=== PATIENT | female | born 1965 | race Caucasian/White ===

== ENCOUNTER → 2020-01-12 12:59 | Outpatient (BNVA) | payer MEDICARE, MEDICAID, SELFPAY | PROVIDERS: Family Provider Internal Medicine; PCP Internal Medicine; Visit Provider Nurse Practitioner | DX: M54.5 Low back pain (principal); M54.2 Cervicalgia; Z79.891 Long term (current) use of opiate analgesic | CPT/HCPCS: 99213; 99214 ==

== ENCOUNTER → 2020-01-16 12:40 | Outpatient (BNVA) | payer MEDICARE, MEDICAID, SELFPAY | PROVIDERS: Family Provider Internal Medicine; PCP Internal Medicine; Visit Provider Anesthesiology Pain Medicine | DX: G89.29 Other chronic pain (principal); M47.816 Spondylosis without myelopathy or radiculopathy, lumbar region | CPT/HCPCS: 64635; 64636; 77003; J1030; J2001 ==

== ENCOUNTER → 2020-01-17 12:40 | Outpatient (BNVA) | payer MEDICARE, MEDICAID, SELFPAY | PROVIDERS: Family Provider Internal Medicine; PCP Internal Medicine; Visit Provider Nurse Practitioner | DX: F41.1 Generalized anxiety disorder (principal); F43.12 Post-traumatic stress disorder, chronic | CPT/HCPCS: 99213 ==

== ENCOUNTER → 2020-02-08 12:17 | Outpatient (BNVA) | payer MEDICARE, MEDICAID, SELFPAY | PROVIDERS: Family Provider Internal Medicine; PCP Internal Medicine; Visit Provider Anesthesiology Pain Medicine | DX: G89.29 Other chronic pain (principal); M47.816 Spondylosis without myelopathy or radiculopathy, lumbar region; Z79.891 Long term (current) use of opiate analgesic | CPT/HCPCS: 64635; 64636; 77003; J1030; J2001 ==

== ENCOUNTER → 2020-04-11 08:26 | Outpatient (BNVA) | payer MEDICARE, MEDICAID, SELFPAY | PROVIDERS: Family Provider Internal Medicine; PCP Internal Medicine; Visit Provider Nurse Practitioner | DX: F41.1 Generalized anxiety disorder (principal); F43.12 Post-traumatic stress disorder, chronic | CPT/HCPCS: 99213 ==

== ENCOUNTER → 2020-05-08 10:38 | Outpatient (BNVA) | payer MEDICARE, MEDICAID, SELFPAY | PROVIDERS: Family Provider Internal Medicine; PCP Internal Medicine; Visit Provider Anesthesiology | DX: G89.29 Other chronic pain (principal); M51.36 Other intervertebral disc degeneration, lumbar region; M47.816 Spondylosis without myelopathy or radiculopathy, lumbar region; M79.604 Pain in right leg; M79.605 Pain in left leg; M54.2 Cervicalgia; M79.10 Myalgia, unspecified site; Z79.891 Long term (current) use of opiate analgesic | CPT/HCPCS: 99214 ==

== ENCOUNTER → 2020-07-10 09:51 | Outpatient (BNVA) | payer MEDICARE, MEDICAID, SELFPAY | PROVIDERS: Family Provider Internal Medicine; PCP Internal Medicine; Visit Provider Anesthesiology | DX: G89.29 Other chronic pain (principal); M51.36 Other intervertebral disc degeneration, lumbar region; M47.816 Spondylosis without myelopathy or radiculopathy, lumbar region; M54.2 Cervicalgia; Z79.891 Long term (current) use of opiate analgesic | CPT/HCPCS: 99213; 99214 ==

== ENCOUNTER → 2020-07-12 08:19 | Outpatient (BNVA) | payer MEDICARE, MEDICAID, SELFPAY | PROVIDERS: Family Provider Internal Medicine; PCP Internal Medicine; Visit Provider Anesthesiology | DX: G89.29 Other chronic pain (principal); M51.36 Other intervertebral disc degeneration, lumbar region; M47.816 Spondylosis without myelopathy or radiculopathy, lumbar region; Z79.891 Long term (current) use of opiate analgesic | CPT/HCPCS: 62323; J1040; J3490 ==

== ENCOUNTER → 2020-07-27 09:22 | Outpatient (BNVA) | payer MEDICARE, MEDICAID, SELFPAY | PROVIDERS: Family Provider Internal Medicine; PCP Internal Medicine; Visit Provider Nurse Practitioner | DX: F41.1 Generalized anxiety disorder (principal); F43.12 Post-traumatic stress disorder, chronic | CPT/HCPCS: 99213 ==

== ENCOUNTER → 2020-09-07 11:08 | Outpatient (BNVA) | payer MEDICARE, MEDICAID, SELFPAY | PROVIDERS: Family Provider Internal Medicine; PCP Internal Medicine; Visit Provider Anesthesiology | DX: G89.29 Other chronic pain (principal); M51.36 Other intervertebral disc degeneration, lumbar region; M47.816 Spondylosis without myelopathy or radiculopathy, lumbar region; M54.2 Cervicalgia; Z79.891 Long term (current) use of opiate analgesic | CPT/HCPCS: 99213; 99214 ==

== ENCOUNTER → 2020-10-18 08:08 | Outpatient (BNVA) | payer MEDICARE, MEDICAID, SELFPAY | PROVIDERS: Family Provider Internal Medicine; PCP Internal Medicine; Visit Provider Nurse Practitioner | DX: F41.1 Generalized anxiety disorder (principal) | CPT/HCPCS: 99213 ==

== ENCOUNTER → 2020-11-16 10:19 | Outpatient (BNVA) | payer MEDICARE, MEDICAID, SELFPAY | PROVIDERS: Family Provider Internal Medicine; PCP Internal Medicine; Visit Provider Anesthesiology | DX: G89.29 Other chronic pain (principal); M51.36 Other intervertebral disc degeneration, lumbar region; M47.816 Spondylosis without myelopathy or radiculopathy, lumbar region; M54.2 Cervicalgia; Z79.891 Long term (current) use of opiate analgesic | CPT/HCPCS: 99213; 99214 ==

== ENCOUNTER → 2020-12-06 09:19 | Outpatient (BNVA) | payer MEDICARE, MEDICAID, SELFPAY | PROVIDERS: Family Provider Internal Medicine; PCP Internal Medicine; Visit Provider Anesthesiology | DX: G89.29 Other chronic pain (principal); M51.36 Other intervertebral disc degeneration, lumbar region; M47.816 Spondylosis without myelopathy or radiculopathy, lumbar region; Z79.891 Long term (current) use of opiate analgesic | CPT/HCPCS: 62323; J1040; J3490 ==

== ENCOUNTER → 2021-01-07 08:22 | Outpatient (BNVA) | payer MEDICARE, MEDICAID, SELFPAY | PROVIDERS: Family Provider Internal Medicine; PCP Internal Medicine; Visit Provider Nurse Practitioner | DX: F43.12 Post-traumatic stress disorder, chronic (principal); F41.1 Generalized anxiety disorder | CPT/HCPCS: 99214 ==

== ENCOUNTER → 2021-01-08 11:07 | Outpatient (BNVA) | payer MEDICARE, MEDICAID, SELFPAY | PROVIDERS: Family Provider Internal Medicine; PCP Internal Medicine; Visit Provider Nurse Practitioner | DX: G89.29 Other chronic pain (principal); M47.816 Spondylosis without myelopathy or radiculopathy, lumbar region; M51.36 Other intervertebral disc degeneration, lumbar region; M54.2 Cervicalgia; Z79.891 Long term (current) use of opiate analgesic | CPT/HCPCS: 99213 ==

== ENCOUNTER 2021-01-28 10:01 | Outpatient (CLI) | payer MEDICARE, MEDICAID, SELFPAY ==
--- NOTE | 2021-01-28 10:07 | MR_ITS ---
WS: [id number] MRI LUMBAR SPINE NONCONTRAST TECHNIQUE: Sagittal T1, T2 and STIR imaging. Axial T1 and T2 imaging. CLINICAL INFORMATION: INCREASED BACK PAIN COMPARISON: MRI 2011 FINDINGS: Mild lumbar curve. No acute compression. Grade 1 anterolisthesis L3 on L4 and L4 on L5 progressed sin ce 2010. This measures 5 mm L3-4 and 6 mm L4-5. Disc space narrowing L3-4, L4-5, L5-S1 has progressed compared to previous. L1-L2: Normal. L1-L2: Normal L3-L4: Grade 1 anterolisthesis L3 on L4. Severe central canal stenosis with impingement subarticular recess bilaterally. Moderate facet arthropathy with ligamentum flavum hypertrophy. Mild bilateral for aminal narrowing. L4-L5: Grade 1 anterolisthesis. Mild disc bulging with moderate central canal stenosis. Impingement s ubarticular recess bilaterally. Moderate facet arthropathy with a small left facet effusion. Impingem ent on the traversing L5 nerve roots. Mild left greater than right foraminal narrowing. L5-S1: Mild disc bulging with slight effacement of the ventral thecal sac. Slight impingement ayla ing S1 nerve roots right greater than left. Moderate bilateral foraminal narrowing with slight imping ement on the exiting L5 nerve roots bilaterally. Visualized pelvic bony structures: Normal. Paravertebral soft tissues: Normal. MR/MR lumbar spine wo con* [id number] IMPRESSION: 1. Mild lumbar curve. No acute compression. 2. Grade 1 anterolisthesis L3 on L4 and L4 on L5 has progressed since 2010. Pr ogressed disc space narrowing at L3-L4, L4-L5, and L5-S1. 3. Severe central canal stenosis L3-4 progressed since 2010 with impingement o n the subarticular recess. 4. Moderate central canal stenosis L4-5 slightly progressed since 2010. 5. Disc bulging L5-S1 with impingement on the traversing right greater than le ft S1 nerve roots with moderate bilateral foraminal narrowing. Foraminal narrow ing at this level is progressed since 2010.
--- NOTE | 2021-01-28 11:00 | XR_ITS ---
WS: [id number] LUMBAR SPINE FLEXION AND EXTENSION TECHNIQUE: 3 views of the lumbar spine: Lateral neutral, flexion, and extension views. CLINICAL INFORMATION: M47.816 - Spondylosis without myelopathy or radiculopathy, lumbar region COMPARISON: FINDINGS: Disc space narrowing worse at L3-L4, L4-L5 and L5-S1. Grade 1 anterolisthesis L3 on L4 measuring 3.7 mm. Grade 1 anterolisthesis L4 on L5 measuring 8 mm slightly increased since 2019. This increases sli ghtly to 11 mm in flexion and decreases to 7 mm in extension. Moderate facet arthropathy L3-L5. Disc space narrowing L3-L4 L4-L5 has progressed compared to previous. XR/XR lumbar spine f/e only [id number] IMPRESSION: 1. Grade 1 anterolisthesis L4 on L5 slightly increased since 2018 with mild in stability described above. 2. Grade 1 anterolisthesis L3 on L4 without significant instability. 3. Disc space narrowing L3-L5 progressed from previous
== END 2021-01-28 10:02 | disposition home or self-care (01) ==
PROVIDERS: PCP Internal Medicine; Visit Provider Nurse Practitioner
DX: M47.816 Spondylosis without myelopathy or radiculopathy, lumbar region (principal); M51.27 Other intervertebral disc displacement, lumbosacral region; M48.061 Spinal stenosis, lumbar region without neurogenic claudication
CPT/HCPCS: 72120; 72148

== ENCOUNTER 2021-02-10 13:34 | Emergency (ER) | payer MEDICARE, MEDICAID, SELFPAY ==
[2021-02-10 13:45] VITALS: BP 109/75; PULSE 77; RESP 18; TEMP 36.8; O2SAT 97; BMI 19.5
--- NOTE | 2021-02-10 14:03 | ED_ITS ---
HPI - Female Genitourinary General: Chief complaint: Urogenital-Female Stated complaint: AB PAIN, POSS UTI Time Seen by Provider: 02/10/21 13:51 History of Present Illness: HPI Narrative: Patient complains about burning with urination last couple days. Denies any vaginal discharge or bleeding. Is fever chills nausea or vomiting. Said it feels similar to UTIs she has had a past. MD elicited complaint: dysuria and UTI Pertinent past history: recurrent UTIs Onset (ago): day(s) Severity: mild Female Urogenital Radiation: Non-Radiating Severity scale (1-10): 1 Quality of pain: burning Consistency: intermittent Vaginal discharge: none Vaginal bleeding: none Urinary symptoms: Dysuria Exacerbating factors: none Relieving factors: none Associated symptoms: Reports no associated symptoms; Deny abdominal pain, headache(s) or nausea Treatment prior to arrival: none Sexual activity: No Patient : No Review of Systems Const: Denies: fever(s), chills or body aches Eyes: Denies: change in vision or blurry vision ENMT: Denies: throat pain or nasal congestion Card: Denies: chest pain or dyspnea on exertion Resp: Denies: dyspnea, productive cough or non-productive cough GI: Denies: abdominal pain, nausea or vomiting : Reports: dysuria Musc: Denies: extremity pain Skin/Breast: Denies: rash Neuro: Denies: headache(s) Psych: Denies: anxiety or depression Rashawn/Lymph: Denies: easy bruising PFSH ED PFSH: Medical History Alcohol dependence, in remission Chronic low back pain Chronic neck pain DDD (degenerative disc disease), lumbar Encounter for long-term opiate analgesic use Generalized anxiety disorder Long-term current use of opiate analgesic Lumbar spondylosis Myalgia Opioid dependence, in remission Pain management contract signed Post-traumatic stress disorder, chronic Surgical History Hx of breast reduction, elective bilateral Hx of carpal tunnel repair BILATERALLY Hx of section Hx of partial cystectomy Hx of tubal ligation Family History Grandfather Cancer BRAIN CANCER Mother Lung disease COPD Denies family history of Anesthesia complication Bleeding disorder Social History Smoking and tobacco status: never smoked Second hand smoke exposure: No Alcohol intake: never Lives independently: Yes History of recent travel: No Physical Exam Const: COMMON NORMALS: no acute distress Resp: COMMON NORMALS: normal respiratory effort Psych: COMMON NORMALS: mental status grossly normal Course Vital Signs: Vital signs: Vital Signs Temperature 98.3 F 02/10/21 13:45 Pulse Rate 77 02/10/21 13:45 Respiratory Rate 18 02/10/21 13:45 Blood Pressure 109/75 02/10/21 13:45 Pulse Oximetry 97 02/10/21 13:45 Discharge Plan Discharge Prescriptions: No Action lidocaine 5 % cream 1 applic TOPICAL ONCE PRNRF: 0 bupropion HCl [Wellbutrin XL] 300 mg tablet extended release 24 hr 300 mg PO QAM Qty: 30 RF: 2 hydroxyzine HCl 50 mg tablet 50 mg PO Q6H PRN (Reason: anxiety) Qty: 120 RF: 2 topiramate [Topamax] 200 mg tablet 200 mg PO BID Qty: 60 RF: 2 trazodone 50 mg tablet 100 mg PO .HS PRN (Reason: sleep) Qty: 60 RF: 2 zolpidem [Ambien] 5 mg tablet 5 mg PO .HS Qty: 30 RF: 2 prazosin 1 mg capsule 1 mg PO .HS Qty: 30 RF: 2 sennosides [Senna Lax] 8.6 mg tablet 8.6 mg PO .2 BID RF: 0 oxycodone 15 mg tablet 15 mg PO TID PRN (Reason: pain) 30 Days Qty: 90 RF: 0 oxycodone 15 mg tablet 15 mg PO TID PRN (Reason: pain) 30 Days Qty: 90 RF: 0 Coding Level of Care Code ED [employer]
[2021-02-10 14:46] VITALS: BP 102/62; PULSE 85; RESP 16; O2SAT 97
[2021-02-10 14:53] LABS: Blood Urine 2+ (Negative); Glucose Urine UA Norm (Normal); Ketones Urine Negative (Negative); Nitrate Urine Positive (Negative); Protein Urine 3+ (Negative); Urine Appearance Hazy (CLEAR); Urine Color Orange (Yellow); pH Urine 5 (5-7)
[2021-02-10 14:55] LABS: Add Urine Microscopic? YES; Leukocyte Esterase Urine Trace (Negative)
[2021-02-10] MEDS: cefTRIAXone 1,000 MG in lidocaine 1% 2.1 ML 1 MG IM (14:57)
[2021-02-10 14:58] LABS: RBC Urine 15-25 /hpf (0-2); WBC Urine 55-80 /hpf (0-5)
[2021-02-10 14:59] LABS: Add Urine Culture? Yes; Bacteria Urine 1+ /hpf
[2021-02-10 15:28] VITALS: BP 116/70; RESP 18
== END 2021-02-10 15:28 | disposition home or self-care (01) ==
PROVIDERS: Emergency Provider Nurse Practitioner Family
DX: R10.9 Unspecified abdominal pain (principal)
CPT/HCPCS: 81001; 87086; 96372; 99283; J0696

== ENCOUNTER 2021-02-25 12:30 | Outpatient (CLI) | payer MEDICARE, MEDICAID, SELFPAY ==
--- NOTE | 2021-02-25 12:41 | US_ITS ---
WS: [id number] Complete ABDOMINAL ULTRASOUND HISTORY: ABD PAIN COMPARISON: None available. Liver: 12.0 cm in length. Liver is normal size and echogenicity with no mass or intrahepatic dilatati on. Gallbladder: Normally distended with no gallstones, wall thickening or pericholecystic fluid. Gallbladder wall thickness: 0.2 cm. Pancreas: Normal pancreas. Pancreatic duct is mildly prominent at 2.9 mm. CBD: 0.4 cm. Right kidney: 8.3 cm x 4.3 cm x 4.0 cm. Kidney measures low normal size. There is scarring or cortic al thinning of the upper pole. No hydronephrosis or mass. Left kidney: 9.4 cm x 3.8 cm x 3.7 cm. No mass, cortical thickening or hydronephrosis. Spleen: Normal size and echogenicity. Abdominal aorta and IVC are within normal limits. No ascites. US/US abdomen complete* [id number] IMPRESSION: 1. Normal liver and gallbladder. 2. Very mildly prominent pancreatic duct. New since 08/26/2016. No mass at the pancreatic head is identified. Consider further evaluation by CT with IV and or al contrast. 3. RIGHT kidney is low normal size with cortical thinning and scarring in the upper pole.
--- NOTE | 2021-02-25 12:41 | US_ITS ---
WS: [id number] TRANSABDOMINAL PELVIC AND TRANSVAGINAL PELVIC ULTRASOUND HISTORY: ABD PAIN COMPARISON: None available. Uterus: 5.5 cm x 3.6 cm x 2.7 cm. Small anteverted uterus. No fibroid or mass. Endometrium: 0.4 cm. Normal endometrium. No mass identified. There is a small amount of fluid in endo metrial cavity. Right ovary: 1.7 cm x 1.0 cm x 1.6 cm. Atrophic ovary. Normal vascularity. No solid or cystic mass. Left ovary: 1.9 cm x 1.5 cm x 0.7 cm. Atrophic ovary. Normal vascularity. No solid or cystic mass. No free fluid. US/US pelvic with transvaginal IMPRESSION: 1. No pelvic masses. 2. Normal uterus and ovaries for postmenopausal patient.
== END 2021-02-25 12:31 | disposition home or self-care (01) ==
LOC: RAD 12:37
PROVIDERS: PCP Nurse Practitioner Family; Visit Provider Nurse Practitioner Family
DX: R10.84 Generalized abdominal pain (principal)
CPT/HCPCS: 76700; 76830; 76856

== ENCOUNTER → 2021-03-07 09:23 | Outpatient (BNVA) | payer MEDICARE, MEDICAID, SELFPAY | PROVIDERS: PCP Nurse Practitioner Family; Visit Provider Anesthesiology | DX: G89.29 Other chronic pain (principal); M51.36 Other intervertebral disc degeneration, lumbar region; M47.816 Spondylosis without myelopathy or radiculopathy, lumbar region; M48.061 Spinal stenosis, lumbar region without neurogenic claudication; Z79.891 Long term (current) use of opiate analgesic | CPT/HCPCS: 99213 ==

== ENCOUNTER 2021-03-18 09:39 | Outpatient (CLI) | payer MEDICARE, MEDICAID, SELFPAY ==
--- NOTE | 2021-03-18 09:53 | CT_ITS ---
WS: [id number] CT ABDOMEN WITH CONTRAST HISTORY: ABNORMALITY OF PANCREAS Contiguous single phase 5 mm axial imaging performed to the abdomen. Oral contrast has been provided. Coronal and sagittal reformats are submitted. All CT scans at [facility] use at least on e of these dose optimization techniques: automated exposure control; mA and/or kV adjustment per albert ent size (includes targeted exams where dose is matched to clinical indication); or iterative reconst ruction. CONTRAST: Omnipaque 300; 95 mL IV. DLP: 455.2 mGycm COMPARISON: 01/19/2017. Ultrasound 02/25/2021 Lower thorax: Unremarkable. Liver: Normal. No intrahepatic dilatation. Gallbladder: Normal. Pancreas: Normal size pancreas. Pancreatic duct is identified measuring up to 2.5 mm. Common bile di t at pancreatic head is normal measuring 6.1 mm. There is no obstructing calcification or mass identi fied. Spleen: Normal. Adrenals: Normal. Right kidney: Numerous nonobstructing calcifications in the kidney. There is cortical thinning and sc arring but no obstruction. Left kidney: Numerous small calcifications measuring up to 8 mm in the renal pelvis. No obstruction. Cortical scarring and thinning. Aorta: Mild atherosclerosis and intimal thickening. GI tract: Marked fecal retention in the visualized colon. Increased soft tissue thickening in the cec um is probably retained fecal material is no constipation. No adenopathy or free fluid. Abdominal wall: No hernia. Visualized osseous structures: L3 and L4 anterolisthesis by 6 mm. Marked facet joint arthritis at L4- 5 and L5-S1. CT/CT abdomen w con* [id number] IMPRESSION: 1. Pancreatic duct is minimally prominent. Still within normal limits. 2. Common bile duct is top normal at 6.1 mm. No pancreatic head mass or duct c alcification. 3. Bilateral nephrolithiasis, nonobstructing with multifocal areas of cortical scarring. Probably from prior ischemic events or infections. 4. Marked constipation the visualized colon.
[2021-03-18] MEDS: iohexol 300 mg/mL 50 mL Btl PO (10:32)
[2021-03-18] MEDS: iohexol 300 mg/mL 100 mL Btl IV (11:20)
== END 2021-03-18 09:40 | disposition home or self-care (01) ==
LOC: RADWPI 09:47
PROVIDERS: PCP Nurse Practitioner Family; Visit Provider Nurse Practitioner Family
DX: Q45.3 Other congenital malformations of pancreas and pancreatic duct (principal); K59.00 Constipation, unspecified; N20.0 Calculus of kidney
CPT/HCPCS: 74160; Q9967

== ENCOUNTER → 2021-04-08 08:11 | Outpatient (BNVA) | payer MEDICARE, MEDICAID, SELFPAY | PROVIDERS: PCP Nurse Practitioner Family; Visit Provider Nurse Practitioner | DX: F43.12 Post-traumatic stress disorder, chronic (principal); F41.1 Generalized anxiety disorder | CPT/HCPCS: 99214 ==

== ENCOUNTER → 2021-05-15 10:28 | Outpatient (BNVA) | payer MEDICARE, MEDICAID, SELFPAY | PROVIDERS: PCP Nurse Practitioner Family; Visit Provider Nurse Practitioner | DX: G89.29 Other chronic pain (principal); M43.16 Spondylolisthesis, lumbar region; M48.061 Spinal stenosis, lumbar region without neurogenic claudication; M47.816 Spondylosis without myelopathy or radiculopathy, lumbar region; M51.36 Other intervertebral disc degeneration, lumbar region; M54.2 Cervicalgia; F10.21 Alcohol dependence, in remission; Z79.891 Long term (current) use of opiate analgesic | CPT/HCPCS: 99214 ==

== ENCOUNTER → 2021-05-28 10:32 | Outpatient (BNVA) | payer MEDICARE, MEDICAID, SELFPAY | PROVIDERS: PCP Nurse Practitioner Family; Visit Provider Orthopaedic Surgery | DX: Z01.812 Encounter for preprocedural laboratory examination (principal); Z20.822 Contact with and (suspected) exposure to COVID-19 | CPT/HCPCS: 87635 ==

== ENCOUNTER 2021-05-31 10:58 | Observation (INO) | payer MEDICARE, MEDICAID, SELFPAY ==
[2021-05-27 12:52] VITALS: BMI 19.5
--- NOTE | 2021-05-27 14:51 | ANES.PREANE2 ---
Pre-Anesthetic Assessment Pre-Anesthetic Assessment: Height/Weight: Height 1.6 m Weight 49.895 kg Proposed Procedure: Operation Date: 05/31/21 07:00 Proposed Procedures p PLIF L4/5 4/5 80066, 70079, 57023, 87630, 39043, 06897 M43.16(Not Applicable) - Diego Duarte Natali, DO Was Beta Mark taken within 24 hours: N/A Was Clonidine taken within 24 hours: N/A Social: Social History: Alcohol (h/o ETOH abuse) and Tobacco (h/o smoking) Exam: Pre-Anes Outpt Exam: alert, oriented x 3 and regular rate & rhythm Airway: Submandibular: WNL Cervical ROM: WNL MP: 2 Dentition: False Pulmonary: Pulmonary: COPD Musc/skel: Musc/skel: Lower Back Pain Comments: Chronci pain/opioid Neuropsych: Neuropsych: Anxiety and Depression Anesthetic Plan: ASA status: 3 Anesthesia: General Risk of > 500 ml blood loss (7ml/kg in children): No PFSH Anesthesia PFSH: Medical History (Updated 05/15/21 @ 11:58 by GURWINDER Mena) Alcohol dependence, in remission Chronic low back pain Chronic neck pain DDD (degenerative disc disease), lumbar Encounter for long-term opiate analgesic use Generalized anxiety disorder Lumbar spondylosis Myalgia Opioid dependence, in remission Pain management contract signed Post-traumatic stress disorder, chronic Surgical History Hx of breast reduction, elective bilateral Hx of carpal tunnel repair BILATERALLY Hx of section Hx of partial cystectomy Hx of tubal ligation Family History Grandfather Cancer BRAIN CANCER Mother Lung disease COPD Denies family history of Anesthesia complication Bleeding disorder Social History Smoking and tobacco status: never smoked Second hand smoke exposure: No Alcohol intake: never Desire information about alcohol rehabilitation?: No Desire information about substance/drug rehabilitation?: No Lives independently: Yes History of recent travel: No Data Anesthesia Cardiac Studies: No Data to Display
[2021-05-31] VITALS (20 sets, daily range): BP systolic 82–122; BP diastolic 47–76; PULSE 58–79; RESP 14–27; TEMP 36.2–37.3; O2SAT 97–100
[2021-05-31] MEDS: sodium chloride 0.9% 1,000 ML 30 ML IV (06:30)
--- NOTE | 2021-05-31 06:38 | P.ANESUD_ITS ---
Pre-Anesthetic Update Pre-Anesthetic Assessment: Date of Surgery/Procedure: 05/31/21 Proposed Procedure: Operation Date: 05/31/21 07:00 Proposed Procedures p PLIF L3/4 - L4/5 48726, 35390, 85564, 02785, 79813, 76355 M43.16(Not Camille licable) - Diego Hurst, DO Any changes to Pre-Anesthetic Assessment?: No Last Intake: Intake Last Liquid Date 05/30/21 Last Liquid Time 22:00 Last Solid Date 05/30/21 Last Solid Time 22:00 Vitals: Temperature 97.9 F 05/31/21 06:10 Temperature Source Temporal Artery S can 05/31/21 06:10 Pulse Rate 65 05/31/21 06:10 Pulse Rhythm 05/31/21 06:24 Pulse Strength 3+ Normal 05/31/21 06:24 Respiratory Rate 16 05/31/21 06:10 Blood Pressure 102/62 05/31/21 06:10 Blood Pressure Gayla n 75 05/31/21 06:10 Pulse Oximetry 100 05/31/21 06:10 Oxygen Delivery Me thod 05/31/21 06:24 Exam: Pre-Anes Outpt Exam: alert, oriented x 3, clear to auscultation bilaterally and regular rate & rhythm Cardiac Studies: No Data to Display
--- NOTE | 2021-05-31 06:41 | W.PM.OPSUD ---
Surgery/Procedure H&P Update DATE OF PROCEDURE: May 31, 2021 DATE H&P PERFORMED: 05/14/21 H&P UPDATE INFORMATION: I have reviewed H&P completed within last 30 days, I have examined patient prior to procedure and No changes to prior documentation PLANNED PROCEDURE: Operation Date: 05/31/21 07:00 Proposed Procedures p PLIF L3/4 - L4/5 15227, 22487, 71003, 27826, 79005, 55127 M43.16(Not Applicable) - Diego Hurst DO
[2021-05-31] MEDS: heparin, porcine 1,000 unit/mL INJ 10 mL 10000 UNIT IRRIGATION (07:56)
[2021-05-31] MEDS: vancomycin 1,000 MG SDV 1000 MG XX (09:46)
[2021-05-31] MEDS: ceFAZolin 1,000 mg SDV 2000 MG IVP (10:51)
[2021-05-31] MEDS: HYDROmorphone 1 mg/mL INJ 1 mL 0.5 MG IVP ×2 (11:21→11:31)
--- NOTE | 2021-05-31 11:28 | P.OP_ITS ---
Operative Report Date of procedure: May 31, 2021 Pre-op Diagnosis: Lumbar spondylolisthesis; stenosis Post-op diagnosis: same Procedure Done: 1. L3/4 Interbody fusion with posterolateral fusion 2. L4/5 Interbody fusion with posterolateral fusion 3. Instrumentation L3-5 4. Cage at L3/4 5. Cage at L4/5 6. Laminectomy L3 7. Laminectomy L4 8. use of autograft from same incision 9. allograft 10. Bone marrow aspirate from right iliac crest 11. Use of computer navigation stereotactic for spine Surgeon: Diego Hurst Anesthesia: General Estimated blood loss (mL): 300 Condition: stable Disposition: PACU Procedure: 1. L3/4 Interbody fusion with posterolateral fusion 2. L4/5 Interbody fusion with posterolateral fusion 3. Instrumentation L3-5 4. Cage at L3/4 5. Cage at L4/5 6. Laminectomy L3 7. Laminectomy L4 8. use of autograft from same incision 9. allograft 10. Bone marrow aspirate from right iliac crest 11. Use of computer navigation stereotactic for spine 12. Reduction of spondyloisthesis at L4/5 Patient is brought to the operative suite. After undergoing anesthesia, the patient had neuro monitoring attached. Patient was then placed in the prone position on the Alex table. All areas of impingement were well-padded. Patient was then prepped and draped in the normal sterile fashion. Skin incision was then made over the L3-L5 space. Subperiosteal dissection was made out to the transverse processes of L3 and L4 and L5. Once the exposure was complete attention was then brought to placing the fadicial for computer navigation. The pins were placed into the right iliac crest. The fiducial was then attached to the pins. The fiducial was on Link to the computer. The C arm was then did this pin around the patient. Once this pin was done the information was loaded into the computer in order to facilitate using the computer navigation. Prior to placing the pedicle screws the [employer] bone marrow aspirate kit was used to aspirate bone marrow aspirate from the right iliac crest. this was done by using the sharp probe to open up the bone. Aspiration was performed and then the blunt probe was then used to dissect down to through the bone tunnel. An aspirating well drawn back a millimeter approximately 20 cc of bone marrow aspirate was used. Admixed with the allograft and autograft bone that will be used. The technique for placing the pedicle screws was to use a drill followed by the gearshift probe which was attached to the computer navigation. Followed by the ball probe to feel the superior inferior medial lateral bridges of the pedicles. Then placement of the screws which were attached to the computer navigation. Was done at each pedicle. Screws were placed at L3 bilaterally and L4 bilaterally and L5 bilaterally. Next attention was brought to performing the laminectomy ofL3. This was done using the high-speed bur Kerrisons and curettes. Once the lamina was removed and then attention was brought to performing a partial facetectomy on the contralateral side. This was done again using the high-speed bur curettes and Kerrisons. The ligamentum flavum was taken down bilaterally from L3 to L4. Attention was then brought to the facet on the ipsilateral side. The facet was taken down. The L4 nerve was decompressed as it passed around the L4 pedicle. The laminectomy was done for purposes of decompressing the nerve as well as placement of the cage. The L3 nerve was identified as it traversed through the L3/4 foramen. The thecal sac was identified and retracted. The L3/4 disc base was identified. Using a knife the disc base was opened. And then sequential samantha were placed. The first shaver was a 6 and the last shaver was a 8. Using a pituitary and down going curette the endplates were scraped and disc material was removed from the space. Once adequate decompression of the disc base was felt to be had. Osteoamp sponge was packed into the anterior aspect of the disc base. Then a size 8 cage from [employer] was placed after packing osteoamp into the cage. While placing the cage the thecal sac and L4 nerve was protected. C arm was used to ensure that the cages placed in the appropriate position. Next attention was brought to performing the laminectomy ofL4. This was done using the high-speed bur Kerrisons and curettes. Once the lamina was removed and then attention was brought to performing a partial facetectomy on the contralateral side. This was done again using the high-speed bur curettes and Kerrisons. The ligamentum flavum was taken down bilaterally from L4 to L5. Attention was then brought to the facet on the ipsilateral side. The facet was taken down. The L5 nerve was decompressed as it passed around the L5 pedicle. The laminectomy was done for purposes of decompressing the nerve as well as placement of the cage. The L4 nerve was identified as it traversed through the L4/5 foramen. The thecal sac was identified and retracted. The L4/5 disc base was identified. Using a knife the disc base was opened. And then sequential samantha were placed. The first shaver was a 6 and the last shaver was a 11. Using a pituitary and down going curette the endplates were scraped and disc material was removed from the space. The curt was attached to the contralateral screws. And a reduction tool was attached to the L4 screw. The curt was locked into L5 the L4-5 disc base was distracted with the reduction tool once the distraction was completed then the reduction tool is used to reduce the spondylolisthesis. Once this was reduced then the screw was locked into position. Attention was then brought back to perform discectomy. The size of the initial measurement of the space was 8 now is up to 11. Once adequate decompression of the disc base was felt to be had. Osteoamp sponge was packed into the anterior aspect of the disc base. Then a size 11 cage from [employer] was placed after packing osteoamp into the cage. While placing the cage the thecal sac and L5 nerve was protected. C arm was used to ensure that the cages placed in the appropriate position. Attention was then brought to attaching the rods to the screws placed in the L3 bilaterally 4 bilaterally and L5 bilaterally. Caps were torqued into position. Locking the construct in place. Wound was copiously irrigated and then attention was brought to decorticating the facets and transverse processes laterally. Bone that was taken down from the lamina was used along with osteoamp fibers and sponges were packed into the lateral gutters along the facet joints. This was done bilaterally. Wound was then closed in a layered fashion starting with the thoracolumbar fascia. 0-stratafix was used the sub cutaneous tissue was closed with 2-0 stratafix and skin with 3-0 nylon. Nylon was then used to seal the skin and a steril Silverlon dressing was applied. Patient was then placed in the supine position. The endotracheal tube was removed and patient was transferred to the PACU in stable condition. Associated Problem List Diagnoses (1) Lumbar spondylosis:
--- NOTE | 2021-05-31 11:59 | SUR.PHASEI ---
1155 PT HAS SENSATION/MOVEMENT ALL EXTREMITIES, PEDAL PULSES PALPATED, CAP REFILL <3 SEC
[2021-05-31] MEDS: HYDROcodone-acetaminophen 5-325 mg Tablet PO (12:48)
[2021-05-31] MEDS: sennosides 8.6 mg Tablet 17.2 MG PO ×2 (12:48→20:34)
[2021-05-31] MEDS: morphine 4 mg/mL SDV 1 mL 2 MG IVP ×3 (14:46→23:35)
--- NOTE | 2021-05-31 15:29 | ANE.PACU2 ---
Inpatient post-anesthesia follow up: Airway intact: Yes Vital signs: Temperature 97.8 F Pulse Rate 79 Respiratory Rate 18 Blood Pressure 111/59 Pulse Oximetry 97 Oxygen Delivery Me thod Room Air Oxygen Flow Rate 8 Fraction of Inspir ed Oxygen Hydration adequate: Yes Nausea and vomiting: No Pain level: 3 Mental status: Baseline
[2021-05-31] MEDS: docusate sodium 100 mg Capsule PO (18:30)
[2021-05-31] MEDS: topiramate 100 mg Tablet 200 MG PO (18:30)
[2021-05-31] MEDS: acetaminophen 325 mg Tablet 650 MG PO (22:52)
[2021-06-01] VITALS: BP 105/60; PULSE 65; RESP 17; TEMP 38.6; O2SAT 100
[2021-06-01 00:09] VITALS: TEMP 37.3
[2021-06-01] MEDS: HYDROcodone-acetaminophen 5-325 mg Tablet PO (01:37)
[2021-06-01 03:36] VITALS: RESP 18
[2021-06-01] MEDS: morphine 4 mg/mL SDV 1 mL 2 MG IVP ×2 (03:36→08:42)
[2021-06-01 04:35] VITALS: BP 102/61; PULSE 74; RESP 16; TEMP 38.1; O2SAT 97
[2021-06-01] MEDS: buPROPion XL (24 HR) 300 mg Tablet PO (06:20)
[2021-06-01] MEDS: enoxaparin 40 mg/0.4 mL Syringe SUBCUT (06:20)
[2021-06-01] MEDS: acetaminophen 325 mg Tablet 650 MG PO (06:35)
[2021-06-01 07:50] VITALS: BP 102/65; PULSE 70; RESP 18; TEMP 37.1; O2SAT 98
[2021-06-01] MEDS: sennosides 8.6 mg Tablet 17.2 MG PO (08:50)
[2021-06-01] MEDS: docusate sodium 100 mg Capsule PO (08:50)
[2021-06-01] MEDS: cyanocobalamin 1,000 mcg Tablet 1000 MCG PO (08:50)
[2021-06-01] MEDS: topiramate 100 mg Tablet 200 MG PO (08:50)
--- NOTE | 2021-06-01 10:30 | PM.DCS ---
Discharge Providers Date of Admission: 05/31/21 10:58 Date of Discharge: June 01, 2021 Attending Provider at Admission: Diego Hurst DO Attending Provider at Discharge: Diego Hurst DO Primary Care Provider: Cherry Saldivar NP Diagnoses at Discharge Discharge Diagnosis (1) Lumbar spondylosis: Status: Chronic Reason for Visit Reason for Visit: PLIF L4/5 4/5 Hospital Course Hospital Course Patient was admitted on 05/31/2021 she had a two-level posterior lumbar interbody fusion done. Her course was uncomplicated she was discharged on 06/01/2021. Physical Exam Narrative: EXAM NARRATIVE: Patient is in pain but is controlled. She is sitting in the bed. She was up with therapy. Urinary Catheter Management^: Shea: Cath Placed During This Visit: yes, but has since been removed by the nurse Reason for Continuing Indwelling Catheter: Decision to DC Catheter Urinary Catheter Date of Insertion: 05/31/21 Urinary Catheter Time of Insertion: 07:10 Date Urinary Catheter Removed: 05/31/21 Time Urinary Catheter Discontinued: 15:00 Discharge Data Vitals: Last Vital Signs Temp 98.8 F 06/01/21 07:50 Pulse 70 06/01/21 07:50 Resp 18 06/01/21 07:50 BP 102/65 06/01/21 07:50 Pulse Ox 98 06/01/21 07:50 Discharge Plan Discharge Patient Disposition: Home Condition: Stable Prescriptions: New oxycodone 30 mg tablet 30 mg PO TID PRN (Reason: pain) 10 Days Qty: 30 RF: 0 Continued lidocaine 5 % cream 1 applic TOPICAL ONCE PRN (Reason: Pain) RF: 0 zolpidem [Ambien] 5 mg tablet 5 mg PO .HS Qty: 30 RF: 2 trazodone 50 mg tablet 100 mg PO .HS PRN (Reason: sleep) Qty: 60 RF: 2 topiramate [Topamax] 200 mg tablet 200 mg PO BID Qty: 60 RF: 2 hydroxyzine HCl 50 mg tablet 50 mg PO Q6H PRN (Reason: anxiety) Qty: 120 RF: 2 bupropion HCl [Wellbutrin XL] 300 mg tablet extended release 24 hr 300 mg PO QAM Qty: 30 RF: 2 sennosides [Senna Lax] 8.6 mg tablet 8.6 mg PO .2 BID RF: 0 oxycodone 15 mg tablet 15 mg PO TID PRN (Reason: pain) 30 Days Qty: 90 RF: 0 mupirocin 2 % ointment 1 applic topical BID Qty: 15 RF: 0 cephalexin 500 mg capsule 500 mg PO TID 7 Days Qty: 21 RF: 0 cyanocobalamin (vitamin B-12) Tablet,Chewable 1 tab PO DAILY RF: 0 Discharge Orders: Discharge Order (Routine); Ordered 06/01/21 Ordered By: Diego Hurst Other Ambulatory Orders: DME: Walker (Order) Location: None Selected Ordered By: Diego Hurst Referrals: Home and Community Services [Other] Discharge Diet: Advance as tolerated Discharge Activity: Limit activity as instructed Patient Instructions: Opioid Safety Activity Restrictions/Additional Instructions: Thank you for [facility] for your care! The following is a list of instructions, from your provider, to follow upon your discharge to ensure you have the optimal recovery from your recent injury orsurgery. Follow-up care is a schafer part of your treatment and safety. Be sure to make and go to all appointments, and call your doctor if you are having problems. If you do not already have a follow-up appointment made, call Dr. Hurst office in the next 1-3 days to make follow up appointment for 1 weeks at [phone]. It is also a good idea to know your test results and keep a list of the medicines you take. Medications will be prescribed for you at your provider's discretion. These medications are to be used as instructed; if they are taken more often that prescribed they will not be refilled early and in most cases will not be refilled at all. > When a refill is needed,you should contact benji bennett 2-3 business days before your prescription runs out. Medications will NOT be refilled by auto parts salesperson providers after hours! > Many pain medications contain Tylenol (Acetaminophen). Do not consume more than 4,000 mg of Tylenol per day in total with any combination ofmedications. > Pain medications can cause constipation. Please use an over the counter stool softener as directed, while taking pain medications. Consulty our local pharmacist with questions or recommendations on stool softeners. If constipation persists, contact our office or your primary care provider. > While under our care,you are not to receive pain medications or other controlled substances from any other provider unless our office is notified and approves. Any attempts to do so will result in refusal to prescribe any further pain medications and possible dismissal from our practice. ? ? Showering is permitted, however we ask that you do not take a bath, sit in a whirlpool / Jacuzzi, or go swimming for 1 month. lt wilt be necessary for you to cover your wound/dressing with plastic and tape to keep it dry. ? Walking is essential for the healing process after surgery. We would like you to slowly advance your walking. This should be done on relatively flat clear ground (inside or out) or can be done on a treadmill. Remember this goal does not have to happen all at once, slowly increase your distance and duration. This can be broken into more more than one walk per day as tolerated. Patients who walk as directed after surgery rarely require Physical Therapy. In the unlikely event this issue arises your provider will direct hospital staff to make the appropriate arrangements. ? No lifting over 5 pounds {a gallon of milk) or bending/twisting until further notice. Each of these activities places an unnecessary amount of stress onto the body and can impede the delicate healing process. > Instead of bending at the waist, keep your back straight and bend at the knees. > Instead of twisting your torso, keep your back straight and turn your entire body with your feet. ? You may sleep in any position which makes you comfortable. Many patients find comfort sleeping in a reclining chair. It is not abnormal to have difficulty sleeping for the first several weeks following your surgery. We recommend trying Benadry! or Tylenol PM as directed to help with your sleeping difficulties. Both medications are over the counter and available withoutprescription. ? NO SMOKING!!! Smoking dramatically increases the probability of developing postoperative wound infections. ? Common complaints after lumbar and/or thoracic spine surgery include, but are not limited to: numbness and/or tingling in the legs, pain around the incision and surrounding tissues, muscle spasms, or stiffness of the middle to low back. Contact our office if these symptoms persist or if an acute change occurs. ? No driving for the first 3-5days, and not while taking narcotics [] until seen at your follow-up appointment and cleared. There are no restrictions for riding on short trips, however if you take a longer trip, arrangements should be made to make regular stops to get out of the vehicle and stretch . ? Swelling is an unfortunate event that will take place with any surgery and is the primary source of your postoperative discomfort. While walking and regular approved activities helps control inflammation, there are additional steps you can take to minimizeswelling. > Place ice over the surgical site and surrounding tissue for twenty minutes, followed by applying a low/medium heat (heating pad) for an additional twenty minutes every 1-2 hours as needed for painrelief. > You may use of over the counter anti-inflammatory medications (Ibuprofen, Motrin, Aleve, Advil, etc) as directed on the package label. These types of medicines wm significantly reduce the amount of discomfort you experience after surgery from swelling. It should be noted that if you have and allergy to any of these medications, or a history of ulcers or kidney disease you should consult you primary care provider prior to starting these medications. Discharge Attestations Time Spent in Discharge Care*: less than 30 min Quality Metrics Clinical Quality Measures During this hospital stay, did patient experience: None Coding Level of Care Code Acute [facility] DC note Diagnoses Lumbar spondylosis M47.816
--- NOTE | 2021-06-01 12:11 | PC.NURSE ---
Using clean technique, hemovac removed without complication. Absorbant dressing applied. Patient tolerated well.
== END 2021-06-01 12:12 | disposition home or self-care (01) ==
LOC: MEDSURG 10:59
PROVIDERS: Admitting Provider Orthopaedic Surgery; PCP Nurse Practitioner Family; Visit Provider Orthopaedic Surgery
PROC: (CPT 22612; principal; 2021-05-31 07:00)
DX: M43.16 Spondylolisthesis, lumbar region (principal); J44.9 Chronic obstructive pulmonary disease, unspecified; F41.9 Anxiety disorder, unspecified; F32.9 Major depressive disorder, single episode, unspecified; M79.10 Myalgia, unspecified site
CPT/HCPCS: 20930; 20936; 22633; 22634 ×2; 22842; 22853; 61783; 63047; 63048; 51702; 96372; 97161; 97530; C1713; G0378; J0690; J1100; J1170; J1644; J1650; J2270; J2405; J2704; J3010; J3370; J3490; J7030

== ENCOUNTER → 2021-07-08 08:46 | Outpatient (BNVA) | payer MEDICARE, MEDICAID, SELFPAY | PROVIDERS: PCP Nurse Practitioner Family; Visit Provider Nurse Practitioner | DX: F43.12 Post-traumatic stress disorder, chronic (principal); F41.1 Generalized anxiety disorder | CPT/HCPCS: 99214 ==

== ENCOUNTER 2021-07-12 10:43 | Outpatient (CLI) | payer MEDICARE, MEDICAID, SELFPAY ==
[2021-07-12 11:35] LABS: Basophils % 1.1 %; Eosinophils # 0.1 10^3/uL (0.0-0.8); Eosinophils % 3.5 %; Hematocrit 34.4 % (37.0-47.0); Lymphocytes # 1.3 10^3/uL (0.8-4.8); Lymphocytes % 34.9 %; Mean Corpuscular Hemoglobin 32.1 pg (28.0-34.0); Mean Corpuscular Volume 100.3 fl (81-99); Mean Platelet Volume 10.3 fL (7.4-10.4); Monocytes # 0.3 10^3/uL (0.2-0.9); Monocytes % 6.7 %; Neutrophils # 1.99 10^3/uL (1.8-7.7); Neutrophils % 53.5 %; Nucleated Red Blood Cells % 0 %; Platelet Count 163 10^3/cmm (130-400); Red Blood Count 3.43 10^6/uL (4.1-5.3); White Blood Count 3.7 10^3/uL (4.0-10.0)
[2021-07-12 11:56] LABS: Anion Gap 12.6 (5-19); Blood Urea Nitrogen 19 mg/dL (6-20); Calcium 8.8 mg/dL (8.5-10.5); Carbon Dioxide 22 mmol/L (22-29); Chloride 109 mmol/L (98-107); Glomerular Filtration Rate 46.8 mL/min (90-130); Glucose 90 mg/dL (65-115); Phosphorus 4.1 mg/dL (2.5-4.5); Potassium 4.6 mmol/L (3.5-5.1); Sodium 139 mmol/L (136-145)
[2021-07-12 11:56] LABS: Creatinine Urine, Random 141 mg/dL (28-217)
[2021-07-12 11:58] LABS: Calcium 8.7 mg/dL (8.5-10.5)
[2021-07-12 12:06] LABS: Parathyroid Hormone 22.3 pg/mL (15-65)
[2021-07-12 12:12] LABS: Microalbum Creatinine Ratio Ur 7 mg/dL (0-20); Microalbumin Random Urine 1 ug/dL (0-20)
== END 2021-07-12 10:44 | disposition home or self-care (01) ==
LOC: LAB 10:52
PROVIDERS: PCP Nurse Practitioner Family; Visit Provider Internal Medicine Nephrology
DX: N18.30 Chronic kidney disease, stage 3 unspecified (principal)
CPT/HCPCS: 36415; 80069; 82044; 82310; 83970; 85025

== ENCOUNTER → 2021-07-17 09:52 | Outpatient (BNVA) | payer MEDICARE, MEDICAID, SELFPAY | PROVIDERS: PCP Nurse Practitioner Family; Visit Provider Nurse Practitioner | DX: G89.29 Other chronic pain (principal); M51.36 Other intervertebral disc degeneration, lumbar region; M48.061 Spinal stenosis, lumbar region without neurogenic claudication; M43.16 Spondylolisthesis, lumbar region; M54.2 Cervicalgia; M79.10 Myalgia, unspecified site; F41.1 Generalized anxiety disorder; Z79.891 Long term (current) use of opiate analgesic; Z87.891 Personal history of nicotine dependence | CPT/HCPCS: 99213; 99214 ==

== ENCOUNTER → 2021-07-19 12:59 | Outpatient (BNVA) | payer MEDICARE, MEDICAID, SELFPAY | PROVIDERS: PCP Nurse Practitioner Family; Visit Provider Orthopaedic Surgery | DX: M43.16 Spondylolisthesis, lumbar region (principal) | CPT/HCPCS: 72100 ==

== ENCOUNTER → 2021-09-03 10:57 | Outpatient (BNVA) | payer MEDICARE, MEDICAID, SELFPAY | PROVIDERS: PCP Nurse Practitioner Family; Visit Provider Physician Assistant | DX: M43.16 Spondylolisthesis, lumbar region (principal) | CPT/HCPCS: 72100 ==

== ENCOUNTER 2021-09-11 06:00 | Outpatient (RCR) | payer MEDICARE, MEDICAID, SELFPAY | END 2021-09-29 23:59 | disposition home or self-care (01) | LOC: SPT 06:00 | PROVIDERS: PCP Nurse Practitioner Family; Referring Provider Orthopaedic Surgery; Visit Provider Orthopaedic Surgery | DX: Z47.89 Encounter for other orthopedic aftercare (principal); Z98.1 Arthrodesis status | CPT/HCPCS: 97110; 97161 ==

== ENCOUNTER → 2021-09-12 12:24 | Outpatient (BNVA) | payer MEDICARE, MEDICAID, SELFPAY | PROVIDERS: PCP Nurse Practitioner Family; Visit Provider Registered Nurse Neonatal Intensive Care | DX: N39.0 Urinary tract infection, site not specified (principal) | CPT/HCPCS: 81000 ==

== ENCOUNTER → 2021-09-24 09:48 | Outpatient (BNVA) | payer MEDICARE, MEDICAID, SELFPAY | PROVIDERS: PCP Nurse Practitioner Family; Visit Provider Anesthesiology | DX: G89.29 Other chronic pain (principal); M43.16 Spondylolisthesis, lumbar region; M48.061 Spinal stenosis, lumbar region without neurogenic claudication; M51.36 Other intervertebral disc degeneration, lumbar region; M54.2 Cervicalgia; Z98.1 Arthrodesis status; Z79.891 Long term (current) use of opiate analgesic; Z87.891 Personal history of nicotine dependence | CPT/HCPCS: 99214 ==

== ENCOUNTER 2021-09-30 06:00 | Outpatient (RCR) | payer MEDICARE, MEDICAID, SELFPAY | END 2021-10-29 23:59 | disposition home or self-care (01) | LOC: SPT 06:00 | PROVIDERS: PCP Nurse Practitioner Family; Referring Provider Orthopaedic Surgery; Visit Provider Orthopaedic Surgery | DX: M43.26 Fusion of spine, lumbar region (principal) | CPT/HCPCS: 97110 ==

== ENCOUNTER → 2021-10-04 12:29 | Outpatient (BNVA) | payer MEDICARE, MEDICAID, SELFPAY | PROVIDERS: PCP Nurse Practitioner Family; Visit Provider Nurse Practitioner Family | DX: Z20.822 Contact with and (suspected) exposure to COVID-19 (principal) | CPT/HCPCS: 87635 ==

== ENCOUNTER → 2021-10-08 08:24 | Outpatient (BNVA) | payer MEDICARE, MEDICAID, SELFPAY | PROVIDERS: PCP Nurse Practitioner Family; Visit Provider Nurse Practitioner | DX: F43.12 Post-traumatic stress disorder, chronic (principal); F41.1 Generalized anxiety disorder | CPT/HCPCS: 99214 ==

== ENCOUNTER 2021-10-30 06:00 | Outpatient (RCR) | payer MEDICARE, MEDICAID, SELFPAY | END 2021-11-15 23:00 | disposition home or self-care (01) | LOC: SPT 06:00 | PROVIDERS: PCP Nurse Practitioner Family; Referring Provider Orthopaedic Surgery; Visit Provider Orthopaedic Surgery | DX: M43.26 Fusion of spine, lumbar region (principal) | CPT/HCPCS: 97110 ==

== ENCOUNTER → 2021-11-20 11:04 | Outpatient (BNVA) | payer MEDICARE, MEDICAID, SELFPAY | PROVIDERS: PCP Nurse Practitioner Family; Referring Provider Anesthesiology; Visit Provider Anesthesiology | DX: G89.29 Other chronic pain (principal); M43.16 Spondylolisthesis, lumbar region; M48.061 Spinal stenosis, lumbar region without neurogenic claudication; M51.36 Other intervertebral disc degeneration, lumbar region; M54.2 Cervicalgia; Z98.1 Arthrodesis status; Z79.891 Long term (current) use of opiate analgesic; Z87.891 Personal history of nicotine dependence | CPT/HCPCS: 99214 ==

== ENCOUNTER → 2021-12-08 14:09 | Outpatient (BNVA) | payer MEDICARE, MEDICAID, SELFPAY | PROVIDERS: PCP Nurse Practitioner Family; Visit Provider Family Medicine | DX: Z20.822 Contact with and (suspected) exposure to COVID-19 (principal) | CPT/HCPCS: 87635 ==

== ENCOUNTER → 2021-12-12 11:55 | Outpatient (BNVA) | payer MEDICARE, MEDICAID, SELFPAY | PROVIDERS: PCP Nurse Practitioner Family; Visit Provider Surgery | DX: Z12.11 Encounter for screening for malignant neoplasm of colon (principal); Z20.822 Contact with and (suspected) exposure to COVID-19; K64.9 Unspecified hemorrhoids | CPT/HCPCS: 87635 ==

== ENCOUNTER 2021-12-16 10:02 | Day surgery (SDC) | payer MEDICARE, MEDICAID, SELFPAY ==
[2021-12-13 14:50] VITALS: BMI 19.5
[2021-12-16] VITALS (7 sets, daily range): BP systolic 93–138; BP diastolic 61–77; PULSE 59–76; RESP 12–18; TEMP 36.1–36.9; O2SAT 96–100
[2021-12-16] MEDS: sodium chloride 0.9% 1,000 ML 30 ML IV (10:15)
--- NOTE | 2021-12-16 10:32 | P.HP_ITS ---
Same Day Surgery H&P Indication for Procedure/HPI DATE OF PROCEDURE: December 16, 2021 CHIEF COMPLAINT/INDICATIONFOR SURGICAL PROCEDURE: Colonoscopy possible hemorrhoidectomy PREOP DIAGNOSIS: Hemorrhoids, screening colonoscopy PLANNED PROCEDURE: Operation Date: 12/16/21 11:30 Proposed Procedures p Poss Banding of Hemorrhoids 02597 22699 Z12.11 K64.9(Not Applicable) - Brian Thomas MD s Colonoscopy(Not Applicable) - Brian Thomas MD Medications/Allergies* Home Medications Medication Instructions Recorded Confirmed Type lidocaine 5 % topical cream 1 applic TOPICAL ONCE PRN gm 01/12/20 12/13/21 History sennosides 8.6 mg tablet 8.6 mg PO .2 BID tab 01/12/20 12/13/21 History acetaminophen 500 mg capsule 500 mg PO .6 tabs day PRN cap 07/17/21 12/16/21 History Allergies/Adverse Reactions Allergy/AdvReac Type Severity Reaction Status Date / Time Sulfa (Sulfonamide Allergy Intermediate HIVES Verified 12/16/21 10:17 Antibiotics) Pertinent History/Comorbid Conditions* Medical History (Updated 12/08/21 @ 13:53 by Aelx Zamora MD) Alcohol dependence, in remission Chronic low back pain Chronic neck pain DDD (degenerative disc disease), lumbar Generalized anxiety disorder Lumbar spondylosis Post-traumatic stress disorder, chronic Surgical History (Updated 09/03/21 @ 11:15 by Tyler Grimaldo PA-C) Hx of breast reduction, elective bilateral Hx of carpal tunnel repair BILATERALLY Hx of section Hx of partial cystectomy Hx of tubal ligation Family History (Updated 01/11/20 @ 16:24 by OLE Fontenot) Lung disease Mother COPD Cancer Grandfather BRAIN CANCER Denies family history of Anesthesia complication Bleeding disorder Social History Smoking and tobacco status: former smoker Second hand smoke exposure: No Alcohol intake: never Desire information about alcohol rehabilitation?: No Desire information about substance/drug rehabilitation?: No Lives independently: Yes History of recent travel: No Pertinent Exam Findings alert, oriented x 3 and regular rate & rhythm Recommendations Surgery/Procedure today Coding Level of Care Code Acute [employer] 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
--- NOTE | 2021-12-16 11:05 | ANES.PREANE2 ---
Pre-Anesthetic Assessment Pre-Anesthetic Assessment: Height/Weight: Height 1.6 m Weight 49.895 kg Temp Pulse Resp BP Pulse Ox 98.4 F 76 18 108/76 99 12/16/21 10:20 12/16/21 10:20 12/16/21 10:20 12/16/21 10:20 12/16/21 10:20 Preop Diagnosis: Hemorrhoids, screening colonoscopy Proposed Procedure: Operation Date: 12/16/21 11:30 Proposed Procedures p Poss Banding of Hemorrhoids 92735 [id number] Z12.11 K64.9(Not Applicable) - Brian Thomas MD s Colonoscopy(Not Applicable) - Brian Thomas MD Was Beta Mark taken within 24 hours: N/A Was Clonidine taken within 24 hours: N/A Last intake: Intake Last Liquid Date 12/15/21 Last Liquid Time 20:00 Last Solid Date 12/14/21 Last Solid Time 19:00 Social: Social History: Alcohol and Tobacco Exam: Pre-Anes Outpt Exam: alert, oriented x 3 and regular rate & rhythm Airway: Submandibular: WNL Cervical ROM: WNL MP: 2 Dentition: False Pulmonary: Pulmonary: COPD Musc/skel: Musc/skel: Lower Back Pain Comments: Chronic opioid Neuropsych: Neuropsych: Anxiety and Depression Anesthetic Plan: ASA status: 3 Anesthesia: MAC Risk of > 500 ml blood loss (7ml/kg in children): No PFSH Anesthesia PFSH: Medical History Alcohol dependence, in remission Chronic low back pain Chronic neck pain DDD (degenerative disc disease), lumbar Generalized anxiety disorder Lumbar spondylosis Post-traumatic stress disorder, chronic Surgical History Hx of breast reduction, elective bilateral Hx of carpal tunnel repair BILATERALLY Hx of section Hx of partial cystectomy Hx of tubal ligation Family History Grandfather Cancer BRAIN CANCER Mother Lung disease COPD Denies family history of Anesthesia complication Bleeding disorder Social History (Updated 11/20/21 @ 11:35 by Vianney Suazo LPN) Smoking and tobacco status: former smoker Second hand smoke exposure: No Alcohol intake: never Desire information about alcohol rehabilitation?: No Desire information about substance/drug rehabilitation?: No Lives independently: Yes History of recent travel: No Female Reproductive History: Date of last menstrual period: 12/13/08 Data Anesthesia Cardiac Studies: No Data to Display
--- NOTE | 2021-12-16 12:28 | PM.OP ---
Operative Report Date of procedure: December 16, 2021 Pre-op Diagnosis: Hemorrhoids, screening colonoscopy Post-op Diagnosis: 1. Grade 1 hemorrhoids with loose perianal skin 2. Normal colonoscopy, repeat colonoscopy in 10 years Procedure Done: 1. Colonoscopy past splenic flexure without biopsy 2. Banding of hemorrhoids x2 Pathology: none sent Surgeon: Brian Thomas Anesthesia: MAC Condition: stable Disposition: PACU Procedure: The patient was taken to the operating room and placed in left lateral position under MAC. A colonoscope was introduced and advanced up to the cecum with ileocecal valve and appendicular orifice was visualized. The colon prep was good. The colonoscope was slowly withdrawn. Cecum: Normal Ascending colon: Normal Transverse colon: Normal Descending colon: Normal Sigmoid colon: Normal Rectum: Grade 1 internal hemorrhoids RUBEN: Internal hemorrhoids An anoscope was introduced and the hemorrhoid column on the left side was grasped above the dentate line with a hemorrhoid grasper and band was applied using a band applicator. The hemorrhoid column on the right side was grasped above the dentate line with a hemorrhoid grasper and band was applied using a band applicator. The patient was transferred to recovery room in stable condition.
--- NOTE | 2021-12-16 14:17 | ANE.PACU2 ---
Inpatient post-anesthesia follow up: Airway intact: Yes Vital signs: Temperature 97 F Pulse Rate 59 Respiratory Rate 16 Blood Pressure 126/72 Pulse Oximetry 96 Oxygen Delivery Me thod Room Air Oxygen Flow Rate 6 Fraction of Inspir ed Oxygen Hydration adequate: Yes Nausea and vomiting: No Pain level: 2 Mental status: Baseline Additional Comments: Suspected corneal abrasion (likely happened postop).
== END 2021-12-16 13:25 | disposition home or self-care (01) ==
PROVIDERS: PCP Nurse Practitioner Family; Visit Provider Surgery
PROC: (CPT 45378; principal; 2021-12-16 11:30)
PROC: 0DJD8ZZ Inspection of Lower Intestinal Tract, Via Natural or Artificial Opening Endoscopic (ICD-10-PCS; CPT 45378; 2021-12-16 11:30)
DX: Z12.11 Encounter for screening for malignant neoplasm of colon (principal); K64.0 First degree hemorrhoids; Z87.891 Personal history of nicotine dependence; J44.9 Chronic obstructive pulmonary disease, unspecified
CPT/HCPCS: 45378; 46221; 82274; 83630; 87493; 87506; J0690; J1100; J1885; J2370; J2405; J2704; J3010; J7030

== ENCOUNTER → 2022-01-06 07:48 | Outpatient (BNVA) | payer MEDICARE, MEDICAID, SELFPAY | PROVIDERS: PCP Nurse Practitioner Family; Visit Provider Nurse Practitioner | DX: F43.12 Post-traumatic stress disorder, chronic (principal); F41.1 Generalized anxiety disorder | CPT/HCPCS: 99214 ==

== ENCOUNTER → 2022-03-04 10:00 | Outpatient (BNVA) | payer MEDICARE, MEDICAID, SELFPAY | PROVIDERS: PCP Nurse Practitioner Family; Visit Provider Physician Assistant | DX: M48.061 Spinal stenosis, lumbar region without neurogenic claudication (principal); M43.16 Spondylolisthesis, lumbar region; M46.1 Sacroiliitis, not elsewhere classified; Z48.89 Encounter for other specified surgical aftercare; Z98.1 Arthrodesis status | CPT/HCPCS: 20610; 72100; 99214; 99999; J1100; J2795 ==

== ENCOUNTER → 2022-04-07 10:39 | Outpatient (BNVA) | payer MEDICARE, MEDICAID, SELFPAY | PROVIDERS: PCP Nurse Practitioner Family; Visit Provider Nurse Practitioner | DX: F41.1 Generalized anxiety disorder (principal); F43.12 Post-traumatic stress disorder, chronic | CPT/HCPCS: 99214 ==

== ENCOUNTER 2022-05-06 12:48 | Emergency (ER) | payer MEDICARE, MEDICAID, SELFPAY ==
[2022-05-06 13:04] VITALS: BP 112/63; PULSE 80; RESP 16; TEMP 36.7; O2SAT 100; BMI 19.5
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
[2022-05-06] MEDS: tetanus-diphtheria tox (adult) 0.5 mL SDV IM (13:52)
[2022-05-06 14:40] VITALS: PULSE 85; RESP 16; O2SAT 100
== END 2022-05-06 14:40 | disposition home or self-care (01) ==
PROVIDERS: Emergency Provider Physician Assistant; PCP Nurse Practitioner Family
DX: S80.01XA Contusion of right knee, initial encounter (principal); S63.91XA Sprain of unspecified part of right wrist and hand, initial encounter; S80.211A Abrasion, right knee, initial encounter; Y04.2XXA Assault by strike against or bumped into by another person, initial encounter; Z23 Encounter for immunization
CPT/HCPCS: 73130; 73562; 90471; 90714; 99283

== ENCOUNTER 2022-05-11 12:57 | Emergency (ER) | payer MEDICARE, MEDICAID, SELFPAY ==
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
[2022-05-11 13:35] VITALS: BP 106/73; PULSE 81; RESP 16; TEMP 37.1; O2SAT 98; BMI 19.5
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
== END 2022-05-11 14:11 | disposition home or self-care (01) ==
PROVIDERS: Emergency Provider Physician Assistant; PCP Nurse Practitioner Family
DX: M25.561 Pain in right knee (principal); S81.011D Laceration without foreign body, right knee, subsequent encounter; Y04.8XXD Assault by other bodily force, subsequent encounter
CPT/HCPCS: 73562; 99283

== ENCOUNTER → 2022-07-01 14:17 | Outpatient (BNVA) | payer MEDICARE, MEDICAID, SELFPAY | PROVIDERS: Visit Provider Family Medicine | DX: M51.36 Other intervertebral disc degeneration, lumbar region (principal); N18.31 Chronic kidney disease, stage 3a; K59.09 Other constipation; Z79.891 Long term (current) use of opiate analgesic | CPT/HCPCS: 80069; 82043; 82306; 82310; 83970; 85025 ==

== ENCOUNTER → 2022-10-10 11:45 | Outpatient (BNVA) | payer MEDICARE, MEDICAID, SELFPAY | PROVIDERS: PCP Family Medicine; Visit Provider Family Medicine | DX: R53.83 Other fatigue (principal); M79.641 Pain in right hand; M79.642 Pain in left hand; R41.89 Other symptoms and signs involving cognitive functions and awareness; N18.31 Chronic kidney disease, stage 3a; Z79.891 Long term (current) use of opiate analgesic | CPT/HCPCS: 80053; 82306; 82310; 82607; 83970; 84443; 85025; 85651; 86038; 86140; 86200; 86431 ==

== ENCOUNTER → 2022-12-25 11:04 | Outpatient (BNVA) | payer MEDICARE, MEDICAID, SELFPAY | PROVIDERS: PCP Family Medicine; Visit Provider Emergency Medicine | DX: R39.9 Unspecified symptoms and signs involving the genitourinary system (principal) | CPT/HCPCS: 81000 ==

== ENCOUNTER → 2022-12-31 13:37 | Outpatient (BNVA) | payer MEDICARE, MEDICAID, SELFPAY | PROVIDERS: PCP Family Medicine; Visit Provider Nurse Practitioner Family | DX: N39.0 Urinary tract infection, site not specified (principal) | CPT/HCPCS: 81000 ==

== ENCOUNTER → 2023-01-16 17:18 | Outpatient (BNVA) | payer MEDICARE, MEDICAID, SELFPAY | PROVIDERS: PCP Family Medicine; Visit Provider Nurse Practitioner | DX: R30.0 Dysuria (principal) | CPT/HCPCS: 81000; 87086 ==

== ENCOUNTER → 2023-01-20 11:02 | Outpatient (BNVA) | payer MEDICARE, MEDICAID, SELFPAY | PROVIDERS: PCP Family Medicine; Visit Provider Internal Medicine Rheumatology | DX: M06.4 Inflammatory polyarthropathy (principal); R76.8 Other specified abnormal immunological findings in serum; Z11.59 Encounter for screening for other viral diseases; Z71.85 Encounter for immunization safety counseling; Z79.899 Other long term (current) drug therapy; Z87.891 Personal history of nicotine dependence; S60.352A Superficial foreign body of left thumb, initial encounter; X58.XXXA Exposure to other specified factors, initial encounter; M25.742 Osteophyte, left hand; M19.90 Unspecified osteoarthritis, unspecified site; Z86.19 Personal history of other infectious and parasitic diseases | CPT/HCPCS: 36415; 73130; 80076; 82306; 82565; 85025; 85651; 86140; 86160; 86162; 86235; 86255; 86376; 86480; 86704; 86800; 86803; 87340; 87522; 99204 ==

== ENCOUNTER → 2023-01-27 11:54 | Outpatient (BNVA) | payer MEDICARE, MEDICAID, SELFPAY | PROVIDERS: PCP Family Medicine; Visit Provider Family Medicine | DX: N39.0 Urinary tract infection, site not specified (principal) | CPT/HCPCS: 87086 ==

== ENCOUNTER → 2023-03-12 12:59 | Outpatient (BNVA) | payer MEDICARE, MEDICAID, SELFPAY | PROVIDERS: PCP Family Medicine; Visit Provider Internal Medicine Rheumatology | DX: R76.8 Other specified abnormal immunological findings in serum (principal); M19.90 Unspecified osteoarthritis, unspecified site; Z79.899 Other long term (current) drug therapy; Z71.85 Encounter for immunization safety counseling | CPT/HCPCS: 36415; 80076; 82565; 85025; 86140; 99214 ==

== ENCOUNTER 2023-03-27 06:25 | Emergency (ER) | payer MEDICARE, MEDICAID, SELFPAY ==
--- NOTE | 2023-03-27 06:31 | W.ED.EYEPROB ---
HPI - Eye Problem General: Chief complaint: Eye Problems Stated complaint: eye problems Time Seen by Provider: 03/27/23 06:30 Source: patient Mode of arrival: ambulatory History of Present Illness: 57-year-old female presents emergency room with redness and some mild purulent drainage from the left eye that began overnight she tried some eyedrops she had current prescription as well as a single dose of oral antibiotic. She has some mild photophobia. No loss of vision. No history of foreign body to the eye. chief complaint: eye pain and eye redness [facility] ED PFSH: Medical History Alcohol dependence, in remission Chronic low back pain Chronic neck pain DDD (degenerative disc disease), lumbar Generalized anxiety disorder Hemorrhoids High risk medication use Immunization counseling Inflammatory arthritis Lumbar spondylosis Positive MARY (antinuclear antibody) Post-traumatic stress disorder, chronic Stage 3a chronic kidney disease (CKD) Surgical History History of lumbosacral spine surgery Hx of breast reduction, elective bilateral Hx of carpal tunnel repair BILATERALLY Hx of section x 3 Hx of partial cystectomy Hx of tubal ligation Status post colonoscopy (12/16/21) normal with banding of hemorrhoids x 2 Family History Grandfather Cancer BRAIN CANCER Mother Lung disease COPD Denies family history of Anesthesia complication Bleeding disorder Social History Smoking and tobacco status: former smoker Second hand smoke exposure: No Alcohol intake: never Desire information about alcohol rehabilitation?: No Substance/Drug Use: never Desire information about substance/drug rehabilitation?: No Lives independently: Yes Physical Exam Const: COMMON NORMALS: no acute distress GENERAL APPEARANCE: cooperative and comfortable ORIENTATION/CONSCIOUSNESS: Yes awake, Yes oriented to person, Yes oriented to place and Yes oriented to time HENMT: COMMON NORMALS: normocephalic, atraumatic and hearing grossly normal bilaterally HEAD & SCALP: normocephalic and atraumatic Eye: OTHER: Mild redness of the left eye on the sclera. No chemosis no purulent drainage significant watery drainage pupil equal and reactive extraocular movements intact no sign of trauma no hyphema. No evidence of blepharitis no swelling of the lids no crusting of the eyelid Neuro: SENSORIUM/ORIENTATION: Yes oriented to person, Yes oriented to place and Yes oriented to time Course Vital Signs: Vital signs: Vital Signs Temperature 98.1 F 03/27/23 06:33 Pulse Rate 98 03/27/23 06:37 Respiratory Rate 16 03/27/23 06:37 Blood Pressure 127/89 03/27/23 06:37 Pulse Oximetry 98 03/27/23 06:37 Oxygen Delivery Me thod Room Air 03/27/23 06:37 MDM - Eye Problem Medical Decision Making No blepharitis no trauma to the eye. Start antibiotic drops 2 drops of gentamicin every 4 hours while awake follow-up with primary care if not improving. Medical Records I reviewed the patient's medical records. Lab Data I reviewed the patient's lab results. Discharge Plan Discharge Patient Disposition: Home Clinical Impression: Conjunctivitis Condition: Stable Prescriptions: New gentamicin 0.3 % drops 2 drp ophthalmic (eye) Q4H Qty: 5 0RF Rx Instructions: 2 drops every 4 hours while awake No Action acetaminophen 500 mg capsule 500 mg PO .6 tabs day PRN (Reason: Wound Healing) Patient Comments: pt not taking (DME) lumbar brace See Rx Instructions .Route .MEDSUPPLY Qty: 1 0RF Rx Instructions: As directed oxycodone 10 mg tablet 10 mg PO TID PRN Patient Comments: Dr Justin prescribes Bacillus coagulans [Digestive Advantage Probio-Pre] PO multivitamin Tablet 1 tab PO DAILY tizanidine 4 mg tablet See Rx Instructions PO .in the afternoon Rx Instructions: 1/2 tab in the afternoon orally IN THE AFTERNOON; bupropion HCl [Wellbutrin XL] 300 mg tablet extended release 24 hr 300 mg PO QAM Qty: 30 2RF hydroxyzine HCl 50 mg tablet 50 mg PO Q6H PRN (Reason: anxiety) Qty: 120 2RF topiramate [Topamax] 200 mg tablet 200 mg PO BID Qty: 60 2RF trazodone 50 mg tablet 100 mg PO .HS PRN (Reason: sleep) Qty: 60 2RF Rx Instructions: 1 to 2 at bed prn zolpidem [Ambien] 5 mg tablet 5 mg PO .HS Qty: 30 2RF leflunomide 20 mg tablet 20 mg PO DAILY Qty: 30 3RF sennosides [senna] 8.6 mg tablet See Rx Instructions .ROUTE .COMPLEX Qty: 60 5RF Dose Instruction: TAKE 1 TABLET BY MOUTH TWICE DAILY Rx Instructions: TAKE 1 TABLET BY MOUTH TWICE DAILY prednisone 20 mg tablet See Rx Instructions PO .COMPLEX PRN (Reason: joint pain flare) Qty: 30 1RF Rx Instructions: take 1 or 2 tab daily for 3-7 days as needed for arthritis flare PO PRN; Discharge Orders: Discharge ED (Routine); Ordered 03/27/23 Ordered By: Pop Álvarez Referrals: Brittany Smith DO [Primary Care Provider] - Discharge Diet: Usual diet Discharge Activity: Resume usual activity Patient Instructions: Conjunctivitis (ED), Opioid Safety, Pain Management Activity Restrictions/Additional Instructions: You were seen today for an infection in your left eye. You should use the antibiotic eyedrops you are prescribed 2 drops every 4 hours while awake. If not improving over the next 3 days to follow-up with optometry or ophthalmology. 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
[2023-03-27 06:33] VITALS: BP 127/59; PULSE 85; RESP 16; TEMP 36.7; O2SAT 98; BMI 19.5
[2023-03-27 06:37] VITALS: BP 127/89; PULSE 98; RESP 16; O2SAT 98
== END 2023-03-27 06:41 | disposition home or self-care (01) ==
LOC: ER 06:39
PROVIDERS: Emergency Provider Family Medicine; PCP Family Medicine
DX: H10.9 Unspecified conjunctivitis (principal)
CPT/HCPCS: 99283

== ENCOUNTER 2023-06-26 10:31 | Outpatient (CLI) | payer MEDICARE, MEDICAID, SELFPAY ==
--- NOTE | 2023-06-26 10:45 | US_ITS ---
WS: [id number] RENAL ULTRASOUND HISTORY: CHRONIC CYSTITIS COMPARISON: 02/25/2021 TECHNIQUE: 2-D and color Doppler imaging of the kidney submitted. Right kidney: 8.6 cm x 3.9 cm x 4.5 cm. Cortex: 1.0 cm Low normal size kidney with low normal cortical diameter. No obstruction. No solid mass. Left kidney: 9.1 cm x 4.2 cm x 4.0 cm. Cortex: 1.1 cm Low normal size kidney. No obstruction or mass. Similar to the prior study. Aorta: Normal. Urinary Bladder: Normal distention. US/US renal BI* [id number] IMPRESSION: 1. Kidneys are low normal size as on the prior study. No obstruction or hydron ephrosis. 2. No solid mass. Negative urinary bladder.
== END 2023-06-26 10:32 | disposition home or self-care (01) ==
PROVIDERS: PCP Family Medicine; Visit Provider Nurse Practitioner Family
DX: N30.20 Other chronic cystitis without hematuria (principal)
CPT/HCPCS: 76770

== ENCOUNTER → 2023-07-21 14:01 | Outpatient (BNVA) | payer MEDICARE, MEDICAID, SELFPAY | PROVIDERS: PCP Family Medicine; Visit Provider Internal Medicine Rheumatology | DX: Z79.899 Other long term (current) drug therapy (principal); R76.8 Other specified abnormal immunological findings in serum; Z71.85 Encounter for immunization safety counseling; M15.9 Polyosteoarthritis, unspecified | CPT/HCPCS: 99214 ==

== ENCOUNTER 2023-08-20 14:36 | Outpatient (CLI) | payer MEDICARE, MEDICAID, SELFPAY ==
[2023-08-20 15:17] LABS: Basophils # 0.1 10^3/uL (0.0-0.1); Basophils % 1.3 %; Eosinophils # 0.1 10^3/uL (0.0-0.8); Eosinophils % 2.6 %; Hematocrit 38.4 % (36-47); Lymphocytes # 1.2 10^3/uL (0.8-4.8); Lymphocytes % 31.7 %; Mean Corpuscular HGB Conc 33.3 g/dL (30-55); Mean Corpuscular Hemoglobin 32.3 pg (27-33); Mean Platelet Volume 10.2 fL (7.4-10.4); Monocytes # 0.2 10^3/uL (0.2-0.9); Monocytes % 6.3 %; Neutrophils % 58.1 %; Nucleated Red Blood Cells % 0 %; Platelet Count 137 10^3/cmm (157-399); Red Blood Count 3.96 10^6/uL (3.85-5.65); Red Cell Distribution Width 12.3 % (12.1-15.1); White Blood Count 3.79 10^3/uL (3.29-11.43)
[2023-08-20 15:43] LABS: Alanine Aminotransferase 15 U/L (0-33); Albumin Level 4.8 g/dL (3.5-5.2); Alkaline Phosphatase 78 U/L (35-105); Aspartate Amino Transferase 22 U/L (0-32); Globulin 2.7 g/dL (1.3-4.6); Glomerular Filtration Rate 38.9 mL/min (90-130); Total Bilirubin 0.3 mg/dL (0.15-1.2); Total Protein 7.5 g/dL (6.6-8.7)
[2023-08-27 18:25] LABS: TPMT Activity 16
[2023-09-01 16:09] LABS: 14.3.3 ETA Protein <0.2 ng/mL (<0.2)
== END 2023-08-20 14:37 | disposition home or self-care (01) ==
LOC: LAB 14:38
PROVIDERS: PCP Family Medicine; Visit Provider Internal Medicine Rheumatology
DX: M19.90 Unspecified osteoarthritis, unspecified site (principal); Z79.899 Other long term (current) drug therapy
CPT/HCPCS: 36415; 80076; 82565; 82657; 83520; 85025; 86140

== ENCOUNTER → 2023-10-01 11:39 | Outpatient (BNVA) | payer MEDICARE, MEDICAID, SELFPAY | PROVIDERS: PCP Family Medicine; Visit Provider Nurse Practitioner | DX: R39.9 Unspecified symptoms and signs involving the genitourinary system (principal) | CPT/HCPCS: 81000 ==

== ENCOUNTER 2023-10-06 10:33 | Outpatient (CLI) | payer MEDICARE, MEDICAID, SELFPAY ==
[2023-10-06 11:09] LABS: Basophils % 0.5 %; Eosinophils % 0.2 %; Hematocrit 43.2 % (36-47); Lymphocytes # 0.3 10^3/uL (0.8-4.8); Lymphocytes % 5.1 %; Mean Corpuscular HGB Conc 34.3 g/dL (30-55); Mean Corpuscular Hemoglobin 33.3 pg (27-33); Mean Corpuscular Volume 97.3 fl (85-98); Mean Platelet Volume 9.7 fL (7.4-10.4); Monocytes # 0.3 10^3/uL (0.2-0.9); Monocytes % 4.8 %; Neutrophils # 5.57 10^3/uL (1.8-7.7); Neutrophils % 89.1 %; Nucleated Red Blood Cells % 0 %; Platelet Count 143 10^3/cmm (157-399); Red Blood Count 4.44 10^6/uL (3.85-5.65); Red Cell Distribution Width 12.6 % (12.1-15.1); White Blood Count 6.25 10^3/uL (3.29-11.43)
[2023-10-06 11:31] LABS: Creatinine Urine, Random 291 mg/dL (28-217); Microalbum Creatinine Ratio Ur 21 mg/dL (0-20); Microalbumin Random Urine 6 ug/dL (0-20)
[2023-10-06 11:34] LABS: Blood Urea Nitrogen 25 mg/dL (6-20); Calcium 9.6 mg/dL (8.5-10.5); Carbon Dioxide 21 mmol/L (22-29); Chloride 106 mmol/L (98-107); Glomerular Filtration Rate 42.4 mL/min (90-130); Glucose 138 mg/dL (65-115); Phosphorus 3.3 mg/dL (2.5-4.5); Sodium 140 mmol/L (136-145)
[2023-10-06 11:40] LABS: Parathyroid Hormone 41.1 pg/mL (15-65)
[2023-10-06 11:41] LABS: Anion Gap 16.8 (5-19); Potassium 3.8 mmol/L (3.5-5.1)
[2023-10-06 13:41] LABS: 25 Hydroxy Vitamin D 46 ng/mL (30-100)
[2023-10-06 14:17] LABS: Calcium 9.6 mg/dL (8.5-10.5)
== END 2023-10-06 10:34 | disposition home or self-care (01) ==
PROVIDERS: PCP Family Medicine; Visit Provider Registered Nurse
DX: N18.31 Chronic kidney disease, stage 3a (principal); E55.9 Vitamin D deficiency, unspecified
CPT/HCPCS: 36415; 80069; 82044; 82306; 82310; 83970; 85025

== ENCOUNTER → 2023-11-11 14:14 | Outpatient (BNVA) | payer MEDICARE, MEDICAID, SELFPAY | PROVIDERS: PCP Family Medicine; Visit Provider Registered Nurse Neonatal Intensive Care | DX: R39.9 Unspecified symptoms and signs involving the genitourinary system (principal); N39.0 Urinary tract infection, site not specified | CPT/HCPCS: 81000; 87077; 87086; 87184 ==

== ENCOUNTER → 2023-12-01 10:23 | Outpatient (BNVA) | payer MEDICARE, MEDICAID, SELFPAY | PROVIDERS: PCP Family Medicine; Visit Provider Internal Medicine Rheumatology | DX: Z79.899 Other long term (current) drug therapy (principal); M19.90 Unspecified osteoarthritis, unspecified site; R76.8 Other specified abnormal immunological findings in serum; Z71.85 Encounter for immunization safety counseling | CPT/HCPCS: 99214 ==

== ENCOUNTER → 2024-03-25 11:53 | Outpatient (BNVA) | payer MEDICARE, SELFPAY | PROVIDERS: PCP Family Medicine; Visit Provider Registered Nurse Neonatal Intensive Care | DX: R10.30 Lower abdominal pain, unspecified (principal) | CPT/HCPCS: 81000 ==

== ENCOUNTER → 2024-03-31 11:00 | Outpatient (BNVA) | payer MEDICARE, SELFPAY | PROVIDERS: PCP Family Medicine; Visit Provider Family Medicine | DX: Z13.6 Encounter for screening for cardiovascular disorders (principal); R23.3 Spontaneous ecchymoses | CPT/HCPCS: 85025 ==

== ENCOUNTER 2024-05-03 12:31 | Outpatient (CLI) | payer MEDICARE, SELFPAY ==
--- NOTE | 2024-05-03 12:38 | XRR_ITS ---
PROCEDURE INFORMATION: Exam: XR Abdomen Exam date and time: 05/03/2024 12:43 PM Age: 58 years old Clinical indication: Abdominal pain; Generalized; Prior surgery; Surgery date: 6+ months; Surgery type: Spine, c section; Patient HX: Abd pain for several weeks. Chronic constipation. ; Additional info: Chronic abd pain TECHNIQUE: Imaging protocol: Radiologic exam of the abdomen. Views: Frontal supine view of the abdomen. 1 View. COMPARISON: CT abdomen w con* [id number] 18/03/2021 11:16 FINDINGS: Gastrointestinal tract: There is a nonobstructive bowel gas pattern. Moderate constipation of the left hemicolon. Intraperitoneal space: No visible intra-abdominal free air. Bones/joints: Prior lumbar spine fusion L3-L5 XR/XR KUB [id number] IMPRESSION: Moderate constipation of the left hemicolon
== END 2024-05-03 12:32 | disposition home or self-care (01) ==
PROVIDERS: PCP Family Medicine; Visit Provider Family Medicine
DX: K59.04 Chronic idiopathic constipation (principal); M43.26 Fusion of spine, lumbar region
CPT/HCPCS: 74018

== ENCOUNTER 2024-05-05 11:14 | Outpatient (CLI) | payer MEDICARE, MEDICAID, SELFPAY ==
[2024-05-05 11:51] LABS: Basophils # 0.1 10^3/uL (0.0-0.1); Basophils % 1.1 %; Eosinophils # 0.1 10^3/uL (0.0-0.8); Eosinophils % 1.5 %; Hematocrit 40.9 % (36-47); Lymphocytes # 1.7 10^3/uL (0.8-4.8); Lymphocytes % 36.7 %; Mean Corpuscular Hemoglobin 32.8 pg (27-33); Mean Corpuscular Volume 99.3 fl (85-98); Monocytes # 0.4 10^3/uL (0.2-0.9); Monocytes % 7.6 %; Neutrophils # 2.51 10^3/uL (1.8-7.7); Neutrophils % 53.1 %; Nucleated Red Blood Cells % 0 %; Platelet Count 167 10^3/cmm (157-399); Red Blood Count 4.12 10^6/uL (3.85-5.65); Red Cell Distribution Width 12.8 % (12.1-15.1); White Blood Count 4.72 10^3/uL (3.29-11.43)
[2024-05-05 12:13] LABS: Creatinine Urine, Random 102 mg/dL (28-217); Microalbum Creatinine Ratio Ur 10 mg/dL (0-20); Microalbumin Random Urine 1 ug/dL (0-20)
[2024-05-05 12:13] LABS: Calcium 9.5 mg/dL (8.5-10.5)
[2024-05-05 12:14] LABS: Albumin Level 4.6 g/dL (3.5-5.2); Blood Urea Nitrogen 25 mg/dL (6-20); Calcium 9.7 mg/dL (8.5-10.5); Carbon Dioxide 20 mmol/L (22-29); Chloride 107 mmol/L (98-107); Glomerular Filtration Rate 35.8 mL/min (90-130); Glucose 86 mg/dL (65-115); Phosphorus 3.4 mg/dL (2.5-4.5); Sodium 139 mmol/L (136-145)
[2024-05-05 12:19] LABS: Parathyroid Hormone 39.1 pg/mL (15-65)
[2024-05-05 12:29] LABS: 25 Hydroxy Vitamin D 38 ng/mL (30-100)
== END 2024-05-05 11:15 | disposition home or self-care (01) ==
LOC: LAB 11:19
PROVIDERS: PCP Family Medicine; Visit Provider Registered Nurse
DX: N18.31 Chronic kidney disease, stage 3a (principal); E55.9 Vitamin D deficiency, unspecified
CPT/HCPCS: 36415; 80069; 82044; 82306; 82310; 83970; 85025

== ENCOUNTER → 2024-05-12 13:39 | Outpatient (BNVA) | payer MEDICARE, MEDICAID, SELFPAY | PROVIDERS: PCP Family Medicine; Visit Provider Internal Medicine Rheumatology | DX: M06.041 Rheumatoid arthritis without rheumatoid factor, right hand (principal); M06.042 Rheumatoid arthritis without rheumatoid factor, left hand; R76.8 Other specified abnormal immunological findings in serum; Z79.899 Other long term (current) drug therapy; Z71.85 Encounter for immunization safety counseling | CPT/HCPCS: 20600; 99214; J1010 ==

== ENCOUNTER → 2024-06-24 07:35 | Outpatient (BNVA) | payer MEDICARE, SELFPAY | PROVIDERS: PCP Family Medicine | DX: R30.0 Dysuria (principal) | CPT/HCPCS: 81003; 87086 ==

== ENCOUNTER → 2024-06-28 13:12 | Outpatient (BNVA) | payer MEDICARE, SELFPAY | PROVIDERS: PCP Family Medicine | DX: R30.0 Dysuria (principal) | CPT/HCPCS: 81000; 81015; 87086 ==

== ENCOUNTER → 2024-06-30 17:33 | Outpatient (BNVA) | payer MEDICARE, SELFPAY | PROVIDERS: PCP Family Medicine | DX: Z20.822 Contact with and (suspected) exposure to COVID-19 (principal); J02.9 Acute pharyngitis, unspecified | CPT/HCPCS: 87426; 87880 ==

== ENCOUNTER → 2024-08-09 10:00 | Outpatient (BNVA) | payer MEDICARE, SELFPAY | PROVIDERS: PCP Family Medicine; Visit Provider Nurse Practitioner Family | DX: L82.1 Other seborrheic keratosis (principal); S50.911A Unspecified superficial injury of right forearm, initial encounter; S20.461A Insect bite (nonvenomous) of right back wall of thorax, initial encounter; X58.XXXA Exposure to other specified factors, initial encounter; L81.4 Other melanin hyperpigmentation; L57.8 Other skin changes due to chronic exposure to nonionizing radiation; D22.5 Melanocytic nevi of trunk | CPT/HCPCS: 99203 ==

== ENCOUNTER → 2024-09-22 14:06 | Outpatient (BNVA) | payer MEDICARE, SELFPAY | PROVIDERS: PCP Family Medicine; Visit Provider Internal Medicine Rheumatology | DX: M06.041 Rheumatoid arthritis without rheumatoid factor, right hand (principal); M06.042 Rheumatoid arthritis without rheumatoid factor, left hand; Z79.899 Other long term (current) drug therapy; R76.8 Other specified abnormal immunological findings in serum; Z71.85 Encounter for immunization safety counseling | CPT/HCPCS: 99214 ==

== ENCOUNTER 2024-10-06 10:39 | Outpatient (CLI) | payer MEDICARE, MEDICAID, SELFPAY ==
[2024-10-06 11:38] LABS: Basophils # 0.1 10^3/uL (0.0-0.1); Basophils % 1.3 %; Eosinophils # 0.2 10^3/uL (0.0-0.8); Eosinophils % 5.2 %; Hematocrit 40.4 % (36-47); Lymphocytes # 1.3 10^3/uL (0.8-4.8); Lymphocytes % 34.4 %; Mean Corpuscular HGB Conc 33.4 g/dL (30-55); Mean Corpuscular Hemoglobin 33.3 pg (27-33); Mean Corpuscular Volume 99.8 fl (85-98); Mean Platelet Volume 9.7 fL (7.4-10.4); Monocytes # 0.4 10^3/uL (0.2-0.9); Monocytes % 10.1 %; Neutrophils # 1.89 10^3/uL (1.8-7.7); Neutrophils % 48.7 %; Nucleated Red Blood Cells % 0 %; Platelet Count 150 10^3/cmm (157-399); Red Blood Count 4.05 10^6/uL (3.85-5.65); Red Cell Distribution Width 12.6 % (12.1-15.1); White Blood Count 3.87 10^3/uL (3.29-11.43)
[2024-10-06 11:54] LABS: Alanine Aminotransferase 14 U/L (0-33); Albumin Level 4.5 g/dL (3.5-5.2); Alkaline Phosphatase 100 U/L (35-105); Anion Gap 13.2 (5-19); Aspartate Amino Transferase 22 U/L (0-32); Blood Urea Nitrogen 19 mg/dL (6-20); Calcium 9.1 mg/dL (8.5-10.5); Carbon Dioxide 24 mmol/L (22-29); Chloride 111 mmol/L (98-107); Globulin 1.7 g/dL (1.3-4.6); Glomerular Filtration Rate 42.2 mL/min (90-130); Glucose 54 mg/dL (65-115); Phosphorus 3.7 mg/dL (2.5-4.5); Potassium 4.2 mmol/L (3.5-5.1); Sodium 144 mmol/L (136-145); Total Bilirubin 0.3 mg/dL (0.15-1.2); Total Protein 6.2 g/dL (6.6-8.7)
[2024-10-06 11:56] LABS: Calcium 9.2 mg/dL (8.5-10.5)
[2024-10-06 12:04] LABS: Parathyroid Hormone 27.6 pg/mL (15-65)
[2024-10-06 12:10] LABS: 25 Hydroxy Vitamin D 31 ng/mL (30-100)
[2024-10-06 12:14] LABS: Creatinine Urine, Random 95 mg/dL (28-217); Microalbum Creatinine Ratio Ur 11 mg/dL (0-20); Microalbumin Random Urine 1 ug/dL (0-20)
== END 2024-10-06 10:40 | disposition home or self-care (01) ==
PROVIDERS: Absent Provider Registered Nurse; PCP Family Medicine; Visit Provider Internal Medicine Rheumatology
DX: N18.31 Chronic kidney disease, stage 3a (principal); E55.9 Vitamin D deficiency, unspecified
CPT/HCPCS: 36415; 80069; 80076; 82044; 82306; 82310; 83970; 85025; 86140

== ENCOUNTER → 2024-11-03 17:56 | Outpatient (BNVA) | payer MEDICARE, MEDICAID, SELFPAY | PROVIDERS: PCP Family Medicine; Visit Provider Registered Nurse Neonatal Intensive Care | DX: R39.9 Unspecified symptoms and signs involving the genitourinary system (principal); N39.0 Urinary tract infection, site not specified | CPT/HCPCS: 81000; 87086 ==

== ENCOUNTER 2024-11-18 11:33 | Emergency (ER) | payer MEDICARE, MEDICAID, SELFPAY ==
[2024-11-18 13:05] VITALS: BP 130/57; PULSE 74; RESP 18; TEMP 36.6; O2SAT 100; BMI 20.2
--- NOTE | 2024-11-18 13:12 | ECG_ITS ---
[facility] Date: 2024-11-18 Pat Name: Deloris Causey Department: Room: Gender: Female Real Estate Legal Secretary: : 1965 Requested By: Pop Wood Order Number: [id number] Nancy MD: Khalif Fan M.D. Measurements Intervals [place] Rate: 64 P: 50 MO: 176 QRS: 77 QRSD: 85 T: 109 QT: 393 QTc: 408 Interpretive Statements SINUS RHYTHM Non diagnostic T wave changes MODERATE ST DEPRESSION [0.05+ mV ST DEPRESSION] No previous ECG available for comparison Electronically Signed On 11-18-2024 19:44:14 SPOILAGE WORKER by Khalif Fan M.D. [email or web address]
--- NOTE | 2024-11-18 13:58 | XRR_ITS ---
PROCEDURE INFORMATION: Exam: XR Chest Exam date and time: 11/18/2024 2:58 PM Age: 59 years old Clinical indication: Cough and dyspnea; Additional info: Dyspnea/cough TECHNIQUE: Imaging protocol: Radiologic exam of the chest. Views: 1 view. COMPARISON: CR XR KUB [id number] 05/03/2024 12:43 PM FINDINGS: Airway: Airways are patent. Lungs: Lungs are clear. Pleural spaces: No pleural effusions or pneumothorax. Heart/Mediastinum: No cardiomegaly. Bones/joints: No acute skeletal abnormality or aggressive osseous lesion. Partially seen lumbar spine fixation hardware. Organs: Increased focal lucency in the lower neck, most probably artifactual or perhaps related to air trapping at the level of the thyroid cartilage. XR/XR chest 1V portable [id number] IMPRESSION: 1. No acute cardiopulmonary pathology. 2. Incidental findings as above. Note is made of increased focal lucency in the lower neck, most probably artifactual or perhaps related to air trapping at the level of the thyroid cartilage. Consider noncontrast CT of the neck if warranted.
[2024-11-18 15:19] LABS: Eosinophils # 0.1 10^3/uL (0.0-0.8); Eosinophils % 3.5 %; Hematocrit 39.7 % (36-47); Lymphocytes # 1.8 10^3/uL (0.8-4.8); Lymphocytes % 45.2 %; Mean Corpuscular HGB Conc 33.2 g/dL (30-55); Mean Corpuscular Hemoglobin 33.2 pg (27-33); Mean Platelet Volume 9.9 fL (7.4-10.4); Monocytes # 0.3 10^3/uL (0.2-0.9); Monocytes % 7.4 %; Neutrophils # 1.73 10^3/uL (1.8-7.7); Neutrophils % 42.9 %; Nucleated Red Blood Cells % 0 %; Platelet Count 155 10^3/cmm (157-399); Red Blood Count 3.97 10^6/uL (3.85-5.65); White Blood Count 4.03 10^3/uL (3.29-11.43)
[2024-11-18 15:42] LABS: Alanine Aminotransferase 19 U/L (0-33); Albumin Level 4.5 g/dL (3.5-5.2); Alkaline Phosphatase 105 U/L (35-105); Anion Gap 16.6 (5-19); Aspartate Amino Transferase 30 U/L (0-32); Blood Urea Nitrogen 16 mg/dL (6-20); Calcium 9.3 mg/dL (8.5-10.5); Carbon Dioxide 21 mmol/L (22-29); Chloride 108 mmol/L (98-107); Creatinine Clr Calc Pharmacy 36.0421; Globulin 2.5 g/dL (1.3-4.6); Glomerular Filtration Rate 38.6 mL/min (90-130); Glucose 91 mg/dL (65-115); Osmolality Calculated 295 mOsm/kg (285-295); Potassium 3.6 mmol/L (3.5-5.1); Sodium 142 mmol/L (136-145); Total Bilirubin 0.4 mg/dL (0.15-1.2)
[2024-11-18 16:26] VITALS: PULSE 71; RESP 18; O2SAT 98
--- NOTE | 2024-11-18 16:43 | ED_ITS ---
HPI - General Adult 2 General: Chief complaint: General Medical Stated complaint: lump on chest Time Seen by Provider: 11/18/24 16:18 Source: patient Mode of arrival: ambulatory Limitations: no limitations History of Present Illness: Patient is a 59-year-old female here for a knot on her sternum that she has noticed over the past few weeks. She feels like it is painful. No redness. No chest pain, SOB, or difficulty breathing. Feels like her bra rubs this area. She is also having UTI symptoms. States she is having suprapubic burning and urinary frequency/urgency. Denies fevers/nausea/vomiting. Denies vaginal bleeding, discharge, odor. She is not sexually active. Onset (ago): week(s) Pain Consistency: constant Relieving factors: none Exacerbating factors: none Associated symptoms: Reports no associated symptoms; Deny chest pain, dyspnea, headache(s), nausea, rash, palpitations, syncope or vomiting Treatments prior to arrival: none Related Data Home Medications Medication Instructions Recorded Confirmed multivitamin 1 tab PO DAILY 01/20/23 11/18/24 oxycodone 10 mg tablet 10 mg PO TID PRN Pain 01/20/23 11/18/24 leflunomide 10 mg tablet 10 mg PO DAILY PRN RA flares 11/18/24 11/18/24 lidocaine 5 % topical patch 1 patch topical DAILY PRN Pain 11/18/24 11/18/24 sennosides 8.6 mg tablet (senna) 8.6 mg PO BID 11/18/24 11/18/24 trazodone 50 mg tablet 100 mg PO BEDTIME PRN sleep 11/18/24 11/18/24 zolpidem 5 mg tablet (Ambien) 5 mg PO BEDTIME 11/18/24 11/18/24 Previous Rx's Medication Instructions Recorded lumbar brace #1 ea 07/01/22 simethicone 80 mg chewable tablet 80 mg PO QID PRN Gas #60 tabs 03/31/24 (Gas Relief (simethicone)) prednisone 5 mg tablet 5 mg PO DAILY PRN joint pain flare 09/22/24 #90 tabs Wellbutrin XL 300 mg 24 hr tablet, 300 mg PO QAM #30 tabs 11/08/24 extended release (bupropion HCl) hydroxyzine HCl 50 mg tablet 50 mg PO Q6H PRN anxiety #120 tabs 11/08/24 topiramate 200 mg tablet (Topamax) 200 mg PO BID #60 tabs 11/08/24 cephalexin 500 mg capsule 500 mg PO Q6H 7 days #28 caps 11/18/24 Allergies Allergy/AdvReac Type Severity Reaction Status Date / Time Sulfa (Sulfonamide Allergy Intermediate HIVES Verified 11/08/24 11:30 Antibiotics) azathioprine AdvReac Intermediate severe Verified 11/08/24 11:30 hair loss hydroxychloroquine AdvReac Intermediate severe Verified 11/08/24 11:30 hair loss Review of Systems 2 Const: Denies: fever(s) Card: Reports: other (pain on sternum); Denies: chest pain, palpitations, irregular heart rhythm, edema, swelling of feet/ankles, lightheadedness, syncope, pre-syncope, dyspnea on exertion, orthopnea, leg pain with exertion or acrocyanosis Resp: Denies: dyspnea, productive cough, non-productive cough, pain on inspiration or chest congestion GI: Denies: abdominal pain, nausea, vomiting or diarrhea : Reports: dysuria, urinary frequency and urinary urgency; Denies: flank pain, difficulty voiding, urinary hesitancy, dribbling, hematuria, vaginal odor, vaginal bleeding or vaginal discharge Musc: Denies: neck pain, back pain, extremity pain, extremity swelling, joint pain or joint swelling Skin/Breast: Denies: rash Neuro: Denies: headache(s), numbness in extremities, weakness in extremities, sensory changes or dizziness PFSH ED 2 PFSH: Medical History Seborrheic keratoses Seronegative rheumatoid arthritis of both hands Excessive daytime sleepiness Immunization counseling High risk medication use Inflammatory arthritis Positive MARY (antinuclear antibody) Stage 3a chronic kidney disease (CKD) Hemorrhoids Post-traumatic stress disorder, chronic Alcohol dependence, in remission Generalized anxiety disorder Lumbar spondylosis Chronic low back pain Chronic neck pain DDD (degenerative disc disease), lumbar Surgical History History of lumbosacral spine surgery Status post colonoscopy (12/16/21) normal with banding of hemorrhoids x 2 Hx of breast reduction, elective bilateral Hx of carpal tunnel repair BILATERALLY Hx of section x 3 Hx of partial cystectomy Hx of tubal ligation Family History Grandfather Cancer BRAIN CANCER Mother Lung disease COPD Denies family history of Anesthesia complication Bleeding disorder Social History Smoking and tobacco/nicotine status: never used tobacco/nicotine Second hand smoke exposure: No Alcohol intake: never Substance/Drug Use: never Lives independently: Yes Physical Exam 2 Const: COMMON NORMALS: no acute distress, average body habitus, patient oriented x3, no limitations, alert and well nourished GENERAL APPEARANCE: c ooperative and anxious ORIENTATION/CONSCIOUSNESS: Yes awake, Yes oriented to person, Yes oriented to place and Yes oriented to time HENMT: COMMON NORMALS: normocephalic and atraumatic HEAD & SCALP: normal to inspection, normocephalic and atraumatic Chest: COMMONS NORMALS: normal inspection of the chest and normal palpation of entire chest wall OTHER: pt localizes where her pain/knot is; I feel an anatomically normal transverse ridge on the body of her sternum; I do not appreciate a knot/mass; overlying skin is normal Resp: COMMON NORMALS: normal respiratory effort and clear to auscultation bilaterally AUSCULTATION: clear to auscultation bilaterally Cardio: COMMON NORMALS: regular rate and regular rhythm RATE: regular rate RHYTHM: regular rhythm GI: COMMON NORMALS: Normal to inspection, nondistended, normoactive bowel sounds present, Soft to palpation, non-tender, No hepatosplenomegaly present and no masses PALPATION: Yes Soft to palpation and Yes No hepatosplenomegaly present : COMMON NORMALS: Yes no CVA tenderness BLADDER/KIDNEY EXAM: Yes no CVA tenderness Back/Pelvis: COMMON NORMALS: no CVA tenderness Neuro: COMMON NORMALS: patient oriented x3 SENSORIUM/ORIENTATION: Yes alert, Yes oriented to person, Yes oriented to place and Yes oriented to time Course 2 Vital Signs: Vital signs: Vital Signs Temperature 97.9 F 11/18/24 13:05 Pulse Rate 81 11/18/24 16:59 Respiratory Rate 18 11/18/24 16:26 Blood Pressure 130/57 11/18/24 13:05 Pulse Oximetry 99 11/18/24 16:59 Oxygen Delivery Me thod Room Air 11/18/24 16:26 MDM - General Adult Medical Decision Making Clinically I do not appreciate a mass/knot to her sternum. She can follow-up with primary care for further assessment. CXR showing no acute cardiopulmonary pathology. Incidental finding regarding some focal lucency in her lower neck. She has absolutely no symptoms regarding this. Findings of uncertain significance. Patient has concerns for UTI with her symptoms. She does not want to stay for her urine analysis results and wants to be treated prophylactically. Return precautions given. Medical Records I reviewed the patient's medical records. Lab Data I reviewed the patient's lab results. 11/18/24 14:43 11/18/24 14:43 Radiology Impressions Chest X-Ray 11/18/24 13:58 IMPRESSION: 1. No acute cardiopulmonary pathology. 2. Incidental findings as above. Note is made of increased focal lucency in the lower neck, most probably artifactual or perhaps related to air trapping at the level of the thyroid cartilage. Consider noncontrast CT of the neck if warranted. Laboratory Results WBC 4.03 10^3/uL (3.29-11.43) 11/18/24 14:43 RBC 3.97 10^6/uL (3.85-5.65) 11/18/24 14:43 Hgb 13.20 g/dL (11.27-16.99) 11/18/24 14:43 Hct 39.7 % (36-47) 11/18/24 14:43 MCV 100.0 fl (85-98) H 11/18/24 14:43 MCH 33.2 pg (27-33) H 11/18/24 14:43 MCHC 33.2 g/dL (30-55) 11/18/24 14:43 RDW 13.0 % (12.1-15.1) 11/18/24 14:43 Plt Count 155 10^3/cmm (157-399) L 11/18/24 14:43 MPV 9.9 fL (7.4-10.4) 11/18/24 14:43 Neut % (Auto) 42.9 % 11/18/24 14:43 Lymph % (Auto) 45.2 % 11/18/24 14:43 Bibb % (Auto) 7.4 % 11/18/24 14:43 Eos % (Auto) 3.5 % 11/18/24 14:43 Baso % (Auto) 1.0 % 11/18/24 14:43 Neut # (Auto) 1.73 10^3/uL (1.8-7.7) L 11/18/24 14:43 Lymph # (Auto) 1.8 10^3/uL (0.8-4.8) 11/18/24 14:43 Bibb # (Auto) 0.3 10^3/uL (0.2-0.9) 11/18/24 14:43 Eos # (Auto) 0.1 10^3/uL (0.0-0.8) 11/18/24 14:43 Baso # (Auto) 0.0 10^3/uL (0.0-0.1) 11/18/24 14:43 Nucleated RBC % (auto) 0 % 11/18/24 14:43 Nucleated RBCs # 0.0 /100WBC 11/18/24 14:43 Sodium 142 mmol/L (136-145) 11/18/24 14:43 Potassium 3.6 mmol/L (3.5-5.1) 11/18/24 14:43 Chloride 108 mmol/L (98-107) H 11/18/24 14:43 Carbon Dioxide 21 mmol/L (22-29) L 11/18/24 14:43 Anion Gap 16.6 (5-19) 11/18/24 14:43 BUN 16 mg/dL (6-20) 11/18/24 14:43 Creatinine 1.4 mg/dL (0.5-0.9) H 11/18/24 14:43 GFR Calculation 38.6 mL/min (90-130) L 11/18/24 14:43 Glucose 91 mg/dL (65-115) 11/18/24 14:43 Calculated Osmolality 295 mOsm/kg (285-295) 11/18/24 14:43 Calcium 9.3 mg/dL (8.5-10.5) 11/18/24 14:43 Total Bilirubin 0.4 mg/dL (0.15-1.2) 11/18/24 14:43 AST 30 U/L (0-32) 11/18/24 14:43 ALT 19 U/L (0-33) 11/18/24 14:43 Alkaline Phosphatase 105 U/L (35-105) 11/18/24 14:43 Total Protein 7.0 g/dL (6.6-8.7) 11/18/24 14:43 Albumin 4.5 g/dL (3.5-5.2) 11/18/24 14:43 Globulin 2.5 g/dL (1.3-4.6) 11/18/24 14:43 Urine Color Yellow (Yellow) 11/18/24 16:50 Urine Appearance Clear (CLEAR) 11/18/24 16:50 Urine pH 6.5 (5-7) 11/18/24 16:50 Ur Specific [place] 1.005 (1.005-1.030) 11/18/24 16:50 Urine Protein Negative (Negative) 11/18/24 16:50 Urine Glucose (UA) Negative (Normal) 11/18/24 16:50 Urine Ketones Negative (Negative) 11/18/24 16:50 Urine Blood Negative (Negative) 11/18/24 16:50 Urine Nitrate Negative (Negative) 11/18/24 16:50 Urine Bilirubin Negative (Negative) 11/18/24 16:50 Urine Urobilinogen 0.2 mg/dL (Negative) 11/18/24 16:50 Ur Leukocyte Esterase Negative (Negative) 11/18/24 16:50 Urine RBC 0-2 /hpf (0-2) 11/18/24 16:50 Urine WBC 0-5 /hpf (0-5) 11/18/24 16:50 Ur Squamous Epith Cells 0-5 /hpf (0-5) 11/18/24 16:50 Amorphous Sediment Not Reportable 11/18/24 16:50 Urine Bacteria None seen /hpf (NONE) 11/18/24 16:50 Hyaline Casts 0-4 /lpf H 11/18/24 16:50 All radiology interpretation(s) finalized by discharge Discharge Plan Discharge Patient Disposition: Home Clinical Impression: Sternal pain, UTI symptoms Condition: Stable Prescriptions: New cephalexin 500 mg capsule 500 mg PO Q6H 7 Days Qty: 28 0RF No Action (DME) lumbar brace See Rx Instructions .Route .MEDSUPPLY Qty: 1 0RF Rx Instructions: As directed oxycodone 10 mg tablet 10 mg PO TID PRN (Reason: Pain) Patient Comments: Dr Justin prescribes multivitamin Tablet 1 tab PO DAILY simethicone [Gas Relief (simethicone)] 80 mg tablet,chewable 80 mg PO QID PRN (Reason: Gas) Qty: 60 3RF Rx Instructions: Dose after meals and at bedtime. prednisone 5 mg tablet 5 mg PO DAILY PRN (Reason: joint pain flare) Qty: 90 1RF bupropion HCl [Wellbutrin XL] 300 mg tablet extended release 24 hr 300 mg PO QAM Qty: 30 2RF topiramate [Topamax] 200 mg tablet 200 mg PO BID Qty: 60 2RF hydroxyzine HCl 50 mg tablet 50 mg PO Q6H PRN (Reason: anxiety) Qty: 120 2RF lidocaine 5 % adhesive patch,medicated 1 patch topical DAILY PRN (Reason: Pain) sennosides [senna] 8.6 mg tablet 8.6 mg PO BID trazodone 50 mg tablet 100 mg PO BEDTIME PRN (Reason: sleep) leflunomide 10 mg tablet 10 mg PO DAILY PRN (Reason: RA flares) zolpidem [Ambien] 5 mg tablet 5 mg PO BEDTIME Discharge Orders: Discharge ED (Routine); Ordered 11/18/24 Ordered By: Jessica Rosales Referrals: Lilliam Buchanan MD [Primary Care Provider] - Activity Restrictions/Additional Instructions: As we discussed, please follow-up with your primary care provider for the pain that you are having at your sternum. Your chest x-ray today did not show any abnormalities there. You had described UTI-like symptoms. Urine analysis was collected but you did not want to stay for results. You will be placed on antibiotics based on symptoms. You may also follow-up with primary care if symptoms do not seem to be improving with antibiotic therapy. Coding Level of Care Code ED Admeasurer for Velasquez Winter
[2024-11-18 16:59] VITALS: PULSE 81; O2SAT 99
[2024-11-18 16:59] LABS: Bilirubin Urine Negative (Negative); Blood Urine Negative (Negative); Glucose Urine UA Negative (Normal); Ketones Urine Negative (Negative); Leukocyte Esterase Urine Negative (Negative); Nitrate Urine Negative (Negative); Protein Urine Negative (Negative); Specific Gravity, Urine 1.005 (1.005-1.030); Urine Appearance Clear (CLEAR); Urine Color Yellow (Yellow); Urobilinogen Urine 0.2 mg/dL (Negative); pH Urine 6.5 (5-7)
[2024-11-18 17:04] LABS: Add Urine Microscopic? YES; Bacteria Urine None Seen /hpf; Hyaline Casts Urine 0-4 /lpf; RBC Urine 0-2 /hpf (0-2); Squamous Epithelial Cell Urine 0-5 /hpf (0-5); WBC Urine 0-5 /hpf (0-5)
== END 2024-11-18 17:00 | disposition home or self-care (01) ==
PROVIDERS: Family Medicine; Emergency Provider Physician Assistant; PCP Pediatrics
DX: R07.89 Other chest pain (principal); N18.31 Chronic kidney disease, stage 3a
CPT/HCPCS: 36415; 71045; 80053; 81001; 85025; 93005; 99285

== ENCOUNTER 2024-12-08 13:26 | Outpatient (CLI) | payer MEDICARE, MEDICAID, SELFPAY ==
--- NOTE | 2024-12-08 16:00 | MM_ITS ---
WS: [id number] BILATERAL SCREENING DIGITAL TOMOSYNTHESIS MAMMOGRAM WITH CAD HISTORY: screening COMPARISON: 05/17/2019, 09/02/2017 Bilateral CC and MLO views with tomosynthesis and synthetic mammography submitted. Computer aided det ection analyzed. Breast composition: There are scattered areas of fibroglandular density. No suspicious masses, microc alcifications or architectural distortion. Stable asymmetries in each breast. MM/MM scr BI tomosynthesis [id number] IMPRESSION: BI-RADS: 2 - Benign. FOLLOW UP: 1 Year Follow-up
== END 2024-12-08 13:27 | disposition home or self-care (01) ==
LOC: RAD 13:27
PROVIDERS: PCP Pediatrics
DX: Z12.31 Encounter for screening mammogram for malignant neoplasm of breast (principal); R92.323 Mammographic fibroglandular density, bilateral breasts; N64.89 Other specified disorders of breast
CPT/HCPCS: 77063; 77067

== ENCOUNTER → 2025-02-17 09:03 | Outpatient (BNVA) | payer MEDICARE, SELFPAY | PROVIDERS: Visit Provider Family Medicine Adult Medicine | DX: R39.9 Unspecified symptoms and signs involving the genitourinary system (principal) | CPT/HCPCS: 81000 ==

== ENCOUNTER 2025-04-04 15:26 | Outpatient (CLI) | payer MEDICARE, SELFPAY ==
[2025-04-04 16:32] LABS: Basophils # 0.1 10^3/uL (0.0-0.1); Basophils % 0.9 %; Eosinophils # 0.2 10^3/uL (0.0-0.8); Eosinophils % 4.2 %; Hematocrit 39.3 % (36-47); Lymphocytes # 1.6 10^3/uL (0.8-4.8); Lymphocytes % 29.4 %; Mean Corpuscular HGB Conc 33.8 g/dL (30-55); Mean Corpuscular Hemoglobin 32.8 pg (27-33); Mean Platelet Volume 9.7 fL (7.4-10.4); Monocytes # 0.5 10^3/uL (0.2-0.9); Monocytes % 8.8 %; Neutrophils # 3.11 10^3/uL (1.8-7.7); Neutrophils % 56.7 %; Nucleated Red Blood Cells % 0 %; Platelet Count 159 10^3/cmm (157-399); Red Blood Count 4.05 10^6/uL (3.85-5.65); Red Cell Distribution Width 12.4 % (12.1-15.1); White Blood Count 5.48 10^3/uL (3.29-11.43)
[2025-04-04 17:21] LABS: Albumin Level 4.4 g/dL (3.5-5.2); Anion Gap 17.7 (5-19); Blood Urea Nitrogen 20 mg/dL (6-20); Calcium 9.2 mg/dL (8.5-10.5); Calcium 9.3 mg/dL (8.5-10.5); Carbon Dioxide 20 mmol/L (22-29); Chloride 106 mmol/L (98-107); Glomerular Filtration Rate 46.1 mL/min (90-130); Glucose 95 mg/dL (65-115); Osmolality Calculated 292 mOsm/kg (285-295); Phosphorus 3.3 mg/dL (2.5-4.5); Potassium 3.7 mmol/L (3.5-5.1); Sodium 140 mmol/L (136-145)
[2025-04-04 17:26] LABS: 25 Hydroxy Vitamin D 40 ng/mL (30-100)
[2025-04-04 17:41] LABS: Creatinine Urine, Random 155 mg/dL (28-217); Microalbum Creatinine Ratio Ur 6 mg/dL (0-20); Microalbumin Random Urine 1 ug/dL (0-20)
== END 2025-04-04 15:27 | disposition home or self-care (01) ==
PROVIDERS: Referring Provider Nurse Practitioner Family; Visit Provider Registered Nurse
DX: N30.20 Other chronic cystitis without hematuria (principal); N18.31 Chronic kidney disease, stage 3a; I10 Essential (primary) hypertension; Z01.818 Encounter for other preprocedural examination; E55.9 Vitamin D deficiency, unspecified
CPT/HCPCS: 36415; 80048; 80069; 82044; 82306; 82310; 83970; 85025

== ENCOUNTER 2025-04-19 10:44 | Outpatient (CLI) | payer MEDICARE, SELFPAY | END 2025-04-19 10:45 | disposition home or self-care (01) | PROVIDERS: PCP Family Medicine; Visit Provider Nurse Practitioner Family | DX: N20.0 Calculus of kidney (principal) | CPT/HCPCS: 87086 ==

== ENCOUNTER 2025-05-16 11:32 | Outpatient (CLI) | payer MEDICARE, SELFPAY ==
--- NOTE | 2025-05-16 11:40 | XRR_ITS ---
PROCEDURE INFORMATION: Exam: XR Chest Exam date and time: 05/16/2025 11:59 AM Age: 59 years old Clinical indication: Cough and shortness of breath; Mold check with residence x7 years. Cough, SOB, with phlegm/mucous; Additional info: Chronic cough TECHNIQUE: Imaging protocol: Radiologic exam of the chest. Views: 2 views. COMPARISON: CR XR chest 1V portable [id number] 11/18/2024 2:58 PM FINDINGS: Lungs: No significant active pathology. Pleural spaces: No pleural effusion or pneumothorax. Heart/Mediastinum: Unremarkable. Bones/joints: Incomplete imaging of the lumbar spine fusion hardware. XR/XR chest 2V* [id number] IMPRESSION: No acute pathology or significant interval change.
== END 2025-05-16 11:33 | disposition home or self-care (01) ==
PROVIDERS: PCP Family Medicine; Visit Provider Family Medicine
DX: R05.3 Chronic cough (principal); Z98.1 Arthrodesis status
CPT/HCPCS: 71046; 81000

== ENCOUNTER 2025-05-17 10:18 | Outpatient (CLI) | payer MEDICARE, SELFPAY | END 2025-05-17 10:19 | disposition home or self-care (01) | PROVIDERS: PCP Family Medicine; Visit Provider Family Medicine | DX: R05.3 Chronic cough (principal) | CPT/HCPCS: 87015; 87070; 87077; 87116; 87186; 87205; 87206; 87801 ==

== ENCOUNTER → 2025-05-19 09:30 | Outpatient (BNVA) | payer MEDICARE, SELFPAY | PROVIDERS: PCP Family Medicine; Visit Provider Family Medicine | DX: M06.041 Rheumatoid arthritis without rheumatoid factor, right hand (principal); M06.042 Rheumatoid arthritis without rheumatoid factor, left hand; Z79.899 Other long term (current) drug therapy; Z13.6 Encounter for screening for cardiovascular disorders | CPT/HCPCS: 80053; 80061; 80076; 82565; 85025; 85651; 86140 ==

== ENCOUNTER → 2025-07-17 11:59 | Outpatient (BNVA) | payer MEDICARE, SELFPAY | PROVIDERS: PCP Family Medicine; Visit Provider Family Medicine | DX: Z01.419 Encounter for gynecological examination (general) (routine) without abnormal findings (principal) | CPT/HCPCS: 87624 ==

== ENCOUNTER 2025-07-18 10:11 | Outpatient (CLI) | payer MEDICARE, SELFPAY | END 2025-07-18 10:12 | disposition home or self-care (01) | PROVIDERS: PCP Family Medicine; Visit Provider Family Medicine | DX: M06.041 Rheumatoid arthritis without rheumatoid factor, right hand (principal); M06.042 Rheumatoid arthritis without rheumatoid factor, left hand; Z79.899 Other long term (current) drug therapy; R05.3 Chronic cough; R76.8 Other specified abnormal immunological findings in serum; Z71.85 Encounter for immunization safety counseling | CPT/HCPCS: 87070; 87205; 99214 ==

== ENCOUNTER 2025-07-27 15:12 | Outpatient (CLI) | payer MEDICARE, SELFPAY | END 2025-07-27 15:13 | disposition home or self-care (01) | PROVIDERS: PCP Family Medicine; Visit Provider Family Medicine | DX: R05.3 Chronic cough (principal) | CPT/HCPCS: 87070; 87086; 87205; 87624 ==

== ENCOUNTER → 2025-08-10 10:03 | Outpatient (BNVA) | payer MEDICARE, SELFPAY | PROVIDERS: PCP Family Medicine; Visit Provider Nurse Practitioner Family | DX: L82.1 Other seborrheic keratosis (principal); L81.4 Other melanin hyperpigmentation; L57.8 Other skin changes due to chronic exposure to nonionizing radiation; D22.5 Melanocytic nevi of trunk | CPT/HCPCS: 99213 ==

== ENCOUNTER 2025-08-16 15:25 | Outpatient (CLI) | payer MEDICARE, SELFPAY ==
[2025-08-16 16:08] LABS: Hematocrit 36.5 % (36-47); Hemoglobin 12.70 g/dL (11.27-16.99); Mean Corpuscular HGB Conc 34.8 g/dL (30-55); Mean Corpuscular Hemoglobin 33.1 pg (27-33); Mean Corpuscular Volume 95.1 fl (85-98); Nucleated Red Blood Cells % 0 %; Platelet Count 138 10^3/cmm (157-399); Red Blood Count 3.84 10^6/uL (3.85-5.65); White Blood Count 3.77 10^3/uL (3.29-11.43)
[2025-08-16 16:28] LABS: Alanine Aminotransferase 12 U/L (0-33); Albumin Level 4.7 g/dL (3.5-5.2); Alkaline Phosphatase 84 U/L (35-105); Aspartate Amino Transferase 22 U/L (0-32); Globulin 2.6 g/dL (1.3-4.6); Total Protein 7.3 g/dL (6.6-8.7)
== END 2025-08-16 15:26 | disposition home or self-care (01) ==
PROVIDERS: PCP Family Medicine; Visit Provider Internal Medicine Rheumatology
DX: M06.041 Rheumatoid arthritis without rheumatoid factor, right hand (principal); M06.042 Rheumatoid arthritis without rheumatoid factor, left hand; Z79.899 Other long term (current) drug therapy
CPT/HCPCS: 36415; 80076; 82565; 85025; 85651; 86140; 86480

== ENCOUNTER 2025-10-09 11:12 | Outpatient (CLI) | payer MEDICARE, SELFPAY ==
[2025-10-09 11:53] LABS: Hematocrit 38.7 % (36-47); Hemoglobin 13.10 g/dL (11.27-16.99); Mean Corpuscular HGB Conc 33.9 g/dL (30-55); Mean Corpuscular Hemoglobin 32.6 pg (27-33); Mean Corpuscular Volume 96.3 fl (85-98); Nucleated Red Blood Cells % 0 %; Platelet Count 154 10^3/cmm (157-399); Red Blood Count 4.02 10^6/uL (3.85-5.65); White Blood Count 3.40 10^3/uL (3.29-11.43)
[2025-10-09 12:19] LABS: Albumin Level 4.6 g/dL (3.5-5.2); Anion Gap 14.9 (5-19); Blood Urea Nitrogen 21 mg/dL (6-20); Calcium 9.3 mg/dL (8.5-10.5); Carbon Dioxide 22 mmol/L (22-29); Chloride 105 mmol/L (98-107); Glucose 85 mg/dL (65-115); Potassium 3.9 mmol/L (3.5-5.1); Sodium 138 mmol/L (136-145)
[2025-10-09 12:22] LABS: Calcium 9.3 mg/dL (8.5-10.5)
[2025-10-09 12:24] LABS: Creatinine Urine, Random 138 mg/dL (28-217); Microalbum Creatinine Ratio Ur 7 mg/dL (0-20)
== END 2025-10-09 11:13 | disposition home or self-care (01) ==
PROVIDERS: PCP Family Medicine; Visit Provider Registered Nurse
DX: E55.9 Vitamin D deficiency, unspecified (principal); N18.31 Chronic kidney disease, stage 3a
CPT/HCPCS: 36415; 80069; 82044; 82306; 82310; 83970; 85025

== ENCOUNTER 2025-10-16 09:13 | Outpatient (CLI) | payer MEDICARE, SELFPAY | END 2025-10-16 09:14 | disposition home or self-care (01) | LOC: LAB 09:17 | PROVIDERS: PCP Family Medicine; Visit Provider Registered Nurse | DX: N20.0 Calculus of kidney (principal) | CPT/HCPCS: 81003; 82131; 82140; 82340; 82436; 82507; 82570; 83735; 83935; 84300 ==

== ENCOUNTER 2025-11-13 11:53 | Outpatient (CLI) | payer MEDICARE, MEDICAID, SELFPAY ==
--- NOTE | 2025-11-13 12:00 | XRR_ITS ---
PROCEDURE INFORMATION: Exam: XR Right Hand Exam date and time: 11/13/2025 12:07 PM Age: 60 years old Clinical indication: Right; PT states sunken vein in RT hand on anterior portion under thumb x few months. Constant pain to area. ; Additional info: Cmc joint pain TECHNIQUE: Imaging protocol: Radiologic exam of the right hand. Views: 3 or more views. COMPARISON: CR XR hand RT 01/20/2023 11:05 AM FINDINGS: Bones/joints: Severe 1st CMC and moderate 1st MCP narrowing have progressed. Idiopathic tuft hypertrophy of the thumb is redemonstrated. Fracture, subluxation, or erosion. Soft tissues: Normal. 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
== END 2025-11-13 11:54 | disposition home or self-care (01) ==
LOC: RAD 11:56
PROVIDERS: PCP Family Medicine; Visit Provider Family Medicine
DX: M18.11 Unilateral primary osteoarthritis of first carpometacarpal joint, right hand (principal)
CPT/HCPCS: 73130